=== PATIENT | female | born 1955 | race Caucasian/White ===

== ENCOUNTER 2019-07-16 20:19 | Emergency (ER) | payer OTHER, SELFPAY ==
[2019-07-16 20:20] VITALS: BP 167/84; PULSE 83; RESP 18; TEMP 35.8; O2SAT 100; BMI 32.3
--- NOTE | 2019-07-16 20:45 | ED.DCSUM_ITS ---
History of Present Illness Chief Complaint: Vag Bleeding Informant: Patient Onset: Today Current Severity: Moderate Maximum Severity: Moderate Narrative: Patient presents with onset of lower abdominal cramping and vaginal bleeding this morning. She reports going through 12 pads in the past 8 hours. She is having a lot of cramping and pain into her back. She states that she went through menopause at the age of 59. She has not seen an [employer] in several decades. She is never been . Prior surgical history is significant for appendectomy and tonsillectomy. After arriving to the emergency room she did develop nausea and vomiting. - Past Medical History (1) History of appendectomy Status: Chronic (2) History of tonsillectomy Status: Chronic Past Medical History - Allergies and Home Meds Allergies/Adverse Reactions: Allergies codeine Adverse Reaction (Verified 07/16/19 20:20) Rash Primary Care Physician: Darleen Danielson MD [STAFF PHYSICIAN] - Prior records reviewed: Yes Lives: Spouse/ Significant Other Smoking Status: Never smoker Review of Systems General: Denies: Chills, Fever Eyes: Denies: Visual changes - bilaterally ENT: Denies: Bilateral ear pain Cardiovascular: Denies: Chest pain Respiratory: Denies: Dyspnea, Cough Gastrointestinal: Reports: Abdominal pain, Nausea, Vomiting Musculoskeletal: Reports: Back pain Neurological: Denies: Headache, Weakness Allergy: Denies: Uticaria Physical Exam Vital Signs/Narrative: Vital Signs Temp Pulse Resp BP Pulse Ox 07/16/19 20:20 96.5 F L 83 18 167/84 H 100 Inital Vital Signs reviewed: Yes General: Well nourished, Well developed Head: Normocephalic ENT: Moist mucous membranes Neck: Supple Cardiovascular: Regular rate, Regular rhythm Respiratory: No distress, CTA bilaterally Abdomen: Soft, Tender - Lower abdominal tenderness to palpation. Extremities: Nontender Skin: Normal color Neurological: Alert, Oriented x3 Psychological: Normal affect Diagnostic/Tx/Re-eval Impressions Abdomen/Pelvis CT 07/16/19 21:19 IMPRESSION: 1. The endometrial cavity is distended with heterogeneous soft tissue that demonstrates minimal peripheral enhancement particularly in the fundal region. Primary endometrial or uterine or endocervical malignancy with chronic hemorrhagic/debris relating material suspected. 2. Diffuse colonic diverticulosis Electronically Signed: Chris Moran MD at 22:15 EST , Service support , Transvaginal US 07/16/19 22:03 IMPRESSION: 1. The endometrial cavity and endocervical canal is still with heterogeneous mostly avascular debris compatible with reported hemorrhage. Prominent vascular flow is seen in the cervical canal where there is thickening of the mucosa. The endometrial lining is poorly or incompletely visualized on this study. While the findings can be entirely related to hemorrhage there is suspicion for gynecologic malignancy given the thickening of mucosa and increased vascularity. 2. Direct visualization and tissue sampling may be required for evaluation of malignancy versus a nonmalignant process Electronically Signed: Chris Moran MD at 23:15 EST , Service support , 07/16/19 21:19 Abdomen/Pelvis W IV Cont ONLY [CT] Stat 07/16/19 22:03 Transvaginal Non- [US] Stat Laboratory Results 07/16/19 07/16/19 07/16/19 20:40 20:40 20:40 WBC 13.1 H RBC 3.87 L Hgb 11.5 L Hct 34.6 L MCV 89.4 MCH 29.7 MCHC 33.2 RDW Std Deviation 41.4 RDW Coeff of Tahir 12.6 Plt Count 301 MPV 11.5 Immature Gran % (Auto) 1.700 H Neut % (Auto) 48.3 Lymph % (Auto) 41.5 H [place] % (Auto) 5.9 Eos % (Auto) 1.8 Baso % (Auto) 0.8 Absolute Neuts (auto) 6.4 Absolute Lymphs (auto) 5.45 H Nucleated RBC % 0 Differential Comment SEE COMMENT Platelet Estimate ADEQUATE Plt Morphology Comment LARGE RBC Morphology NORM C+C PT 14.0 INR 1.1 APTT 25.5 Sodium 141 Potassium 3.3 L Chloride 108 H Carbon Dioxide 25.0 Anion Gap 8 BUN 18 Creatinine 1.37 H Estim Creat Clear Calc 39.35 Est GFR (MDRD) Af Amer 50 L Est GFR (MDRD) Non-Af 41 L BUN/Creatinine Ratio 13.1 Glucose 155 H Calcium 8.2 L - Medical Decision Making Patient was given morphine and Zofran for nausea and vomiting when I first saw her. Patient's bleeding has significantly decreased in intensity. I spoke with patient and at bedside about her test results. I also spoke with Dr. Danielson, on-call for [facility]. She states the patient needs to be seen by [employer]-onc. She will have her office call Dr. Ogden in [place] tomorrow morning to try to help arrange close follow-up. Patient should expect to hear from them by 10 AM. This was discussed with patient and at bedside. She states that she will follow-up to at least have the biopsies, but she is not sure that she would ever want surgery or chemotherapy. I advised her that we would least be able to give her definitive diagnosis so she could make an educated decision about her wishes. If bleeding worsens or pain increases patient is to return to the emergency room. ED Disposition - Plan for ED Patient: Disposition: Home or Assisted Living Diagnosis: Vaginal bleeding Instructions: Dysfunctional Uterine Bleeding Prescriptions: Hydrocodone Bitart/Apap 5-325 [[place] 5MG-325MG] 1 tablet PO Q6H PRN PRN 3 Days #10 tablet PRN Reason: Pain Referrals: Darleen Danielson MD [STAFF PHYSICIAN] - Additional Instructions: You should hear from Dr Danielson's office by 10 AM tomorrow. If you do not hear from them by 10, please call for an update. Return to ED for worsening symptoms or concerns.
[2019-07-16] MEDS: 0.9% Normal Saline 1,000 ML 1000 ML IV (20:47)
[2019-07-16] MEDS: Morphine 4 MG/ML Syringe IV (20:48)
[2019-07-16] MEDS: Ondansetron 4 MG/2 ML Vial IV (20:48)
[2019-07-16] MEDS: 0.9% Normal Saline 1,000 ML 150 ML IV (20:50)
[2019-07-16 20:52] LABS: Absolute Lymphocyte Count 5.45 X10^3/uL (0.83-4.51); Absolute Neutrophil Count 6.4 X10^3/uL (2.0-7.7); Basophil% 0.8 % (0-1); Eosinophil# 0.23 X10^3/uL; Eosinophils% 1.8 % (0-5); Hematocrit 34.6 % (37-47); Hemoglobin 11.5 g/dL (12.0-15.0); Lymphocyte # 5.45 X10^3/ul (4.0); Lymphocyte % 41.5 % (19-41); Mean Corp Hgb Conc 33.2 g/dL (32-36); Mean Corpuscular Hgb 29.7 pg (27.0-32.0); Mean Corpuscular Volume 89.4 fL (81-99); Mean Platelet Vol. 11.5 fl (6.2-12.0); Monocyte# 0.78 X10^3/uL; Monocyte% 5.9 % (0-10); NRBC Flagged by Analyzer 0 % (0-5); Neutrophil # 6.35 X10^3/uL (2.7-7.7); Neutrophil % 48.3 % (47-70); POSITIVE DIFFERENTIAL YES; Platelet Count 301 K/mm3 (150-450); RBC Distribution Width CV 12.6 % (11.6-14.6); RBC Distribution Width SD 41.4 fl (35.1-43.9); Red Blood Count 3.87 M/mm3 (4.2-5.4); White Blood Count 13.1 K/mm3 (4.4-11.0)
[2019-07-16 20:55] LABS: Differential Indicated SCAN CRITERIA MET
[2019-07-16 21:06] LABS: Anion Gap 8 (5-15); BUN 18 mg/dL (7-18); BUN/Creat Ratio 13.1 RATIO (10-20); Calcium,Total 8.2 mg/dL (8.5-10.1); Chloride 108 mmol/L (98-107); Creatinine, Serum 1.37 mg/dL (0.55-1.02); EST Glomerular Filtration Rate 41 mL/min (>60); Est Glom Filt Rate - Afr Amer 50 mL/min (>60); Estimated Creatinine Clearance 39.35 ml/min; Glucose 155 mg/dL (74-106); Potassium 3.3 mmol/L (3.5-5.1); Sodium Level 141 mmol/L (136-145)
[2019-07-16 21:10] LABS: International Normalized Ratio 1.1
[2019-07-16 21:11] LABS: Partial Thromboplast Time 25.5 Seconds (24.1-36.2)
--- NOTE | 2019-07-16 21:19 | CT_ITS ---
STUDY: CT ABDOMEN AND PELVIS WITHOUT CONTRAST REASON FOR EXAM: Female, 64 years old. ABDOMEN PAIN AND SEVERE VAGINAL BLEEDING SINCE THIS AM. Pt. is 5yr post-menopause RADIATION DOSAGE (If Supplied By Facility): CTDIvol = ( 17.51 ) mGy, DLP = ( 1134.92 ) mGycm TECHNIQUE: Transaxial images were obtained from the dome of the diaphragm to the symphysis pubis without oral contrast, and without intravenous contrast. Sagittal and coronal images were reconstructed. Individualized dose optimization techniques were used for this CT. COMPARISON: CT of abdomen and pelvis dated September 16, 2009 FINDINGS: The endometrial cavity is distended with heterogeneous soft tissue that demonstrates minimal peripheral enhancement particularly in the fundal region. Primary endometrial or uterine or endocervical malignancy with chronic hemorrhagic/debris relating material suspected. The visualized lung bases are unremarkable. There is decreased attenuation of the liver consistent with steatosis. No intrahepatic biliary duct dilatation or liver mass. Normal gallbladder and extrahepatic biliary system. Normal spleen. Normal pancreas. Normal bilateral adrenal glands. Normal right kidney. Normal left kidney. No hydronephrosis or renal masses. No large stones. Normal visualized stomach. Normal small intestine. There are multiple colonic diverticula consistent with diverticulosis. No bowel dilatation or obstruction. No free air or free fluid. There is non-visualization of the appendix. There is diffuse atherosclerotic calcification of the abdominal aorta, without a demonstrated aneurysm. Normal inferior vena cava. Small 1 cm retroperitoneal lymph node noted between the IVC and aorta in the infrarenal region mild right subcentimeter pelvic sidewall lymphadenopathy is present in the bilateral adnexal regions are grossly unremarkable.. Normal urinary bladder. Normal abdominal wall. There are diffuse degenerative changes of the visualized lumbar spine. CT/Abdomen/Pelvis W IV Cont ONLY IMPRESSION: 1. The endometrial cavity is distended with heterogeneous soft tissue that demonstrates minimal peripheral enhancement particularly in the fundal region. Primary endometrial or uterine or endocervical malignancy with chronic hemorrhagic/debris relating material suspected. 2. Diffuse colonic diverticulosis Electronically Signed: Chris Moran MD at 22:15 EST , Service support ,
[2019-07-16 21:34] LABS: Platelet Estimate ADEQUATE (ADEQ); Platelet Morphology LARGE; Red Cell Morphology NORM C+C NORMAL (NORM C&C)
--- NOTE | 2019-07-16 22:03 | US_ITS ---
PROCEDURE: ULTRASOUND OF THE FEMALE PELVIS - COMPLETE REASON FOR EXAM: Female, 64 years old. HEAVY BLEEDING WIH CLOTS JUST TODAY TECHNIQUE: Transabdominal and Transvaginal TECHNICAL QUALITY: Adequate. COMPARISON: CT of the abdomen and pelvis dated July 16, 2019 FINDINGS: The endometrial cavity and endocervical canal is still with heterogeneous mostly avascular debris compatible with reported hemorrhage. Prominent vascular flow is seen in the cervical canal where there is thickening of the mucosa. The endometrial lining is poorly or incompletely visualized on this study. While the findings can be entirely related to hemorrhage there is suspicion for gynecologic malignancy given the thickening of mucosa and increased vascularity. The uterus is anteverted and is in a midline position. The uterus measures 11.13 x 4.43 x 5.52 cm. There is no demonstrated myometrial mass. The right ovary is non-visualized. There is no visualized right adnexal mass or complex lesion. The left ovary is non-visualized. There is no visualized left adnexal mass or complex lesion. There is no fluid in the cul-de-sac. US/Transvaginal Non- IMPRESSION: 1. The endometrial cavity and endocervical canal is still with heterogeneous mostly avascular debris compatible with reported hemorrhage. Prominent vascular flow is seen in the cervical canal where there is thickening of the mucosa. The endometrial lining is poorly or incompletely visualized on this study. While the findings can be entirely related to hemorrhage there is suspicion for gynecologic malignancy given the thickening of mucosa and increased vascularity. 2. Direct visualization and tissue sampling may be required for evaluation of malignancy versus a nonmalignant process Electronically Signed: Chris Moran MD at 23:15 EST , Service support ,
[2019-07-17 00:10] VITALS: BP 135/86; BP 137/86; PULSE 86; PULSE 88; RESP 17; O2SAT 97
== END 2019-07-17 00:11 | disposition home or self-care (01) ==
PROVIDERS: Emergency Provider Emergency Medicine
DX: N95.0 Postmenopausal bleeding (principal)
CPT/HCPCS: 74177; 76830; 80048; 85025; 85610; 85730; 96361; 96374; 96375; 99285; J7030; Q9967; A4216; J2405

== ENCOUNTER → 2020-03-11 | Outpatient (CLI) | payer OTHER, SELFPAY ==
[2020-03-05 15:13] VITALS: BMI 33.9
--- NOTE | 2020-03-11 07:49 | CT_ITS ---
STUDY: CT ABDOMEN AND PELVIS WITH CONTRAST REASON FOR EXAM: Female, 64 years old. ENDOMETRIAL CANCER WITH TOTAL HYSTERECTOMY AND APPENDECTOMY. NO OTHER TREATMENT RADIATION DOSAGE (If Supplied By Facility): CTDIvol = ( 13.22 ) mGy, DLP = ( 875.28 ) mGycm TECHNIQUE: Transaxial images were obtained from the dome of the diaphragm to the symphysis pubis with oral contrast. Oral and amp; IV READII-CAT and amp; 100ML ISOVUE 370 was administered. Sagittal and coronal images were reconstructed. Individualized dose optimization techniques were used for this CT. COMPARISON: Comparison is made with prior examination dated 07/16/2019. FINDINGS: The visualized lung bases are unremarkable. The visualized portions of the heart are within normal limits. There is decreased attenuation of the liver consistent with steatosis. Normal gallbladder and extrahepatic biliary system. Normal spleen. Normal pancreas. Normal bilateral adrenal glands. Normal right kidney. Normal left kidney. Normal visualized stomach. Normal small intestine. There are multiple colonic diverticula consistent with diverticulosis. The patient is status post appendectomy. There is scattered atherosclerotic calcification of the abdominal aorta, without a demonstrated aneurysm. Normal inferior vena cava. There is borderline retroperitoneal lymphadenopathy with enlarged nodes no greater than 10mm in the short axis diameter. Normal urinary bladder. There is absence of the uterus consistent with a prior hysterectomy. Normal abdominal wall. There are degenerative changes of the visualized lumbar spine. CT/Abdomen/Pelvis WITH Contrast IMPRESSION: Fatty infiltration of the liver. Sigmoid diverticulosis. Status post hysterectomy and appendectomy. Electronically Signed: Marino Agudelo, at 9:46 EDT , Service support ,
--- NOTE | 2020-03-11 07:50 | RAD_ITS ---
STUDY: X-RAY CHEST REASON FOR EXAM: Female, 64 years old. ENDOMETRIAL CANCER. CHEST PAIN AROUND DIAPHRAGM. PAIN IS CONSTANT. NO PREVIOUS SURGERY TECHNIQUE: PA and lateral views of the chest. COMPARISON: None. FINDINGS: Hyperinflation. The lungs are clear. There is no demonstrated pleural abnormality. Normal size heart. Normal mediastinum and fahad. Normal visualized pulmonary arteries. There is atherosclerotic tortuosity of the aortic arch and descending thoracic aorta. There are diffuse degenerative changes of the visualized thoracic spine. Normal visualized ribs, clavicles, and shoulders. There is no demonstrated abnormality of the visualized soft tissue structures of the upper abdomen. RAD/Chest PA and Lateral IMPRESSION: Hyperinflation. The lungs are clear. Electronically Signed: Marino Agudelo, at 9:59 EDT , Service support ,
== END | disposition home or self-care (01) ==
LOC: CT 07:49
PROVIDERS: Referring Provider Internal Medicine Medical Oncology; Visit Provider Internal Medicine Medical Oncology
DX: C54.1 Malignant neoplasm of endometrium (principal)
CPT/HCPCS: 71046; 74177; Q9967

== ENCOUNTER → 2020-07-08 | Outpatient (CLI) | payer OTHER, SELFPAY ==
[2020-07-02 08:50] VITALS: BMI 32.3
--- NOTE | 2020-07-08 11:30 | MISC_PTH ---
PATIENT: CHRIS YORK LOC: [facility] U#:[id number] AGE/SX: 65/F ROOM: RE07/08/[address]: Dr. Abdias Rhodes MD : [id number] BED: DIS: 07/08/2020 SPEC #: [id number] RECD: 07/08/20 15:35 STATUS: YOLANDA SCARLETT #: [id number] HILARIA: 07/08/20 11:[address]: Abdias Rhodes DEPT: SURGICAL PATHOLOGY RECD BY: Mariama Acosta ENTERED: 07/09/20 13:27 SP TYPE: MISC ALEX DR: No Primary Care Phys Tissues: Oral cavity, NOS Procedures: Special Stain Group II Surgery Specimen Level IV HEADER OPERATION: PRE-OP DIAGNOSIS: Oral cavity vesicle TISSUE SUBMITTED: Oral cavity vesicle MICROSCOPIC DIAGNOSIS Oral cavity vesicle (smears): Benign squamous cells. No evidence of viral cytopathic change. See comment. Oral cavity vesicle, biopsy: Benign squamous mucosa. Submucosa with minimal chronic inflammation. No evidence of viral cytopathic change. AM:raul 07/10/2020 COMMENT Two Diff-Quik and two pap stains are prepared from the vesicle for microscopic examination and viewed with appropriate controls and are negative for viral cytopathic change. MICROSCOPIC DESCRIPTION Slides are reviewed. GROSS DESCRIPTION Received is one container labeled with the patient's name and not further designated. The specimen consists of a single irregular fragment of light morgan soft tissue measuring 0.2 x 0.1 x <0.1 cm. Four touch imprints (2 Diff-Quik and 2 pap smears) are prepared. The specimen is totally submitted in one cassette for permanent sections). / AM:raul 07/09/20 TC:5 CPT: 76037, 66406
== END | disposition home or self-care (01) ==
LOC: LABSPEC 14:59
PROVIDERS: Referring Provider Otolaryngology; Visit Provider Otolaryngology
DX: R23.8 Other skin changes (principal)
CPT/HCPCS: 88305; 88313

== ENCOUNTER → 2020-07-15 15:25 | Outpatient (CLI) | payer OTHER, SELFPAY ==
[2020-07-02 08:50] VITALS: BMI 32.3
--- NOTE | 2020-07-15 15:32 | MRI_ITS ---
STUDY: MRI LUMBAR SPINE WITHOUT CONTRAST REASON FOR EXAM: Female, 65 years old. low back pain into R leg, h/o urterine CA TECHNIQUE: Standardized fat and water weighted pulse sequences were obtained in the sagittal and axial planes. COMPARISON: X-ray to FINDINGS: T12-L1: Normal endplates. Normal disc height, hydration and morphology. Normal bilateral facet joints. Normal central canal and bilateral lateral recesses. Normal bilateral intervertebral neural foramina. Normal lumbar lordosis. There is no substantial scoliosis. Normal conus medullaris that terminates at the T12/L1. Marrow replacement of the majority of the L3 vertebral body worrisome for metastatic disease. No pathologic compression fracture. L1-2: Normal endplates. Normal disc height, hydration and morphology. Normal bilateral facet joints. Normal central canal and bilateral lateral recesses. Normal bilateral intervertebral neural foramina. L2-3: Mild bilateral facet hypertrophy and ligament flavum hypertrophy. Mild bilobed disc protrusion produces mild spinal stenosis and mild bilateral neural foraminal stenosis. L3-4: Moderate bilateral facet hypertrophy and ligament flavum hypertrophy. 2 mm of anterolisthesis of L3 on L4 with a mild broad disc protrusion produces mild spinal stenosis and mild bilateral neural foraminal stenosis. L4-5: Mild bilateral facet hypertrophy and ligament flavum hypertrophy. Mild broad disc protrusion produces mild spinal stenosis and mild bilateral neural foraminal stenosis. L5-S1: Sacralization of L5 with a rudimentary disc space with no spinal stenosis or neural foraminal stenosis. Normal visualized sacral ala. Mild friction related edema in the posterior subcutaneous kidneys fat. MRI/Spine Lumbar (Routine) IMPRESSION: 1. Suspect metastatic disease to L3 without a pathologic compression fracture. Correlation with bone scan would be useful. 2. Mild degenerative disc disease as described above. Electronically Signed: Scott Mendosa MD at 16:58 EST Tel , Service support ,
== END ==
PROVIDERS: Referring Provider Orthopaedic Surgery; Visit Provider Orthopaedic Surgery
DX: M54.5 Low back pain (principal)
CPT/HCPCS: 72148

== ENCOUNTER → 2020-07-28 07:41 | Outpatient (CLI) | payer OTHER, SELFPAY ==
[2020-07-21 13:06] VITALS: BMI 32.6
--- NOTE | 2020-07-28 07:44 | NM_ITS ---
CLINICAL: 65-year-old female with reported history of endometrial carcinoma with current complaint of low back discomfort. WHOLE BODY 99m Tc MDP RADIONUCLIDE BONE SCINTIGRAPHY COMPARISON: MRI of the lumbar spine report 07/15/2020 FINDINGS: Following the intravenous administration of 27.0 mCi of 99m Tc MDP, whole body bone images reveal: 1. Increased radiopharmaceutical concentration is identified in the acromioclavicular and sternoclavicular compartments of both shoulders, the left wrist, mid cervical spine posteriorly on the left and right, third-fifth lumbar vertebra, the patellofemoral compartment of the right knee. 2. The remaining skeletal structures are scintigraphically unremarkable with normal-appearing renal images and urinary bladder activity identified. Facilitated uptake appears evident in the left mandible most consistent with periodontal disease-periostitis. There is an increase in radiotracer distribution observed in the right proximal tibia (lateral tibial plateau) likely representing periostitis. NM/Bone Scan Whole Body IMPRESSION: 1. The increase in radiopharmaceutical concentration identified in the bilateral shoulders, left wrist, cervical and lumbar spine, the right knee is most consistent with degenerative arthritis. 2. There is no definitive typical scintigraphic evidence of diffuse axial skeletal metastatic disease on the current examination. Electronically Signed: Scott Sharma DO at 21:53 EST Tel , Service support ,
== END ==
PROVIDERS: Referring Provider Internal Medicine Medical Oncology; Visit Provider Internal Medicine Medical Oncology
DX: C54.1 Malignant neoplasm of endometrium (principal); R93.7 Abnormal findings on diagnostic imaging of other parts of musculoskeletal system
CPT/HCPCS: 78306

== ENCOUNTER → 2020-07-30 13:39 | Outpatient (CLI) | payer OTHER, SELFPAY ==
[2020-07-02 08:50] VITALS: BMI 32.3
[2020-07-21 13:06] VITALS: BMI 32.6
--- NOTE | 2020-07-30 13:43 | CT_ITS ---
STUDY: CT ABDOMEN AND PELVIS WITH CONTRAST REASON FOR EXAM: Female, 65 years old. HX OF ENDOMETRIAL CANCER RADIATION DOSAGE (If Supplied By Facility): CTDIvol = ( 18.5 ) mGy, DLP = ( 1193.46 ) mGycm TECHNIQUE: Transaxial images were obtained from the dome of the diaphragm to the symphysis pubis with oral contrast. Oral and amp; IV Readi-CAT and amp; 100mL Isovue-300 was administered. Sagittal and coronal images were reconstructed. Individualized dose optimization techniques were used for this CT. COMPARISON: Comparison is made with prior examination dated 03/11/2020. FINDINGS: The visualized lung bases are unremarkable. The visualized portions of the heart are within normal limits. There is decreased attenuation of the liver consistent with steatosis. Normal gallbladder and extrahepatic biliary system. Normal spleen. Normal pancreas. Normal bilateral adrenal glands. Normal right kidney. Normal left kidney. Normal visualized stomach. Normal small intestine. There are multiple colonic diverticula consistent with diverticulosis. There is non-visualization of the appendix. There is scattered atherosclerotic calcification of the abdominal aorta, without a demonstrated aneurysm. Normal inferior vena cava. There now is evidence of enlarged lymph nodes in the right retroperitoneum deep to the right psoas muscle. This extends from the level of the distal abdominal aorta caudally into the right hemipelvis adjacent to the right external iliac artery. This was not seen on prior study. This measures 4 cm x 2.1 cm x 6.5 cm. Normal urinary bladder. Normal abdominal wall. There are diffuse degenerative changes of the visualized lumbar spine. CT/Abdomen/Pelvis WITH Contrast IMPRESSION: Interval development of right retrocrural peritoneal lymphadenopathy extending into the right side of the hemipelvis. Fatty infiltration of the liver. Electronically Signed: Marino Augdelo MD at 15:21 EST , Service support ,
== END ==
PROVIDERS: Referring Provider Internal Medicine Medical Oncology; Visit Provider Internal Medicine Medical Oncology
DX: Z85.42 Personal history of malignant neoplasm of other parts of uterus (principal)
CPT/HCPCS: 74177; Q9967

== ENCOUNTER 2020-08-27 20:11 | Emergency (ER) | payer OTHER, SELFPAY ==
[2020-08-21 13:39] VITALS: BMI 30.7
[2020-08-27 20:11] VITALS: BP 139/91; PULSE 107; RESP 23; TEMP 36.6; O2SAT 100; BMI 30.7
--- NOTE | 2020-08-27 20:35 | ED.DCSUM_ITS ---
History of Present Illness Chief Complaint: Back Informant: Patient Onset: - - Acute on chronic Current Severity: Severe Maximum Severity: Severe Narrative: Patient presents secondary to worsening back pain. Patient has a history of endometrial cancer that was treated a year ago. Patient recently had increasing back pain and thought it was secondary to degenerative disc disease. She followed up with a specialist to get an MRI which revealed what appears to be a metastatic or new cancerous lesion to L3. Patient is currently in pain management with Dr. Sotelo. She is scheduled to have a biopsy of the L3 lesion next week. Patient is currently on Decadron, fentanyl patch, and oxycodone every 6 to 8 hours. Patient presents tonight secondary to severe pain. Patient is not interested in chemotherapy or radiation. Once she gets a definitive diagnosis she plans to enter a program referred to as a [facility] where she can be treated for quality of life but not duration of life. At this time patient is asking for pain control to help with her quality of life. She does have an appointment with Dr. Sotelo tomorrow. - Past Medical History (1) Bone destruction Status: Chronic (2) History of salpingo-oophorectomy Status: Chronic (3) History of total abdominal hysterectomy Status: Chronic (4) History of endometrial cancer Status: Chronic Comment: Stage 111C1 Grade 3 Past Medical History - Allergies and Home Meds Allergies/Adverse Reactions: Allergies ibuprofen Adverse Reaction (Intermediate, Verified 08/27/20 20:11) Abd cramps/diarrhea codeine Adverse Reaction (Verified 08/27/20 20:11) Rash Primary Care Physician: Rich Sotelo MD [STAFF PHYSICIAN] - Keep Lesli appointment Prior records reviewed: Yes Lives: Spouse/ Significant Other Smoking Status: Never smoker Review of Systems General: Denies: Chills, Fever Eyes: Denies: Visual changes - bilaterally ENT: Denies: Bilateral ear pain Cardiovascular: Denies: Chest pain Respiratory: Denies: Dyspnea, Cough Gastrointestinal: Denies: Abdominal pain, Vomiting, Diarrhea Genitourinary: Denies: Dysuria Musculoskeletal: Reports: Back pain, Extremity Pain Neurological: Reports: Parasthesia Hematologic: Denies: Easy bruising, Easy bleeding Allergy: Denies: Uticaria Physical Exam Vital Signs/Narrative: Vital Signs Temp Pulse Resp BP Pulse Ox 08/27/20 20:11 97.8 F 107 H 23 H 139/91 H 100 Inital Vital Signs reviewed: Yes General: Well nourished, Well developed Head: Normocephalic ENT: Moist mucous membranes Neck: Supple Cardiovascular: Regular rate, Regular rhythm Respiratory: No distress, CTA bilaterally Abdomen: Soft, Nontender Back: Spinal tenderness Extremities: - - Tenderness of the right lower extremity. Equal distal pulses. No focal deficits noted on testing. Skin: Normal color Neurological: Alert, Oriented x3 Psychological: - - Anxious Diagnostic/Tx/Re-eval - Medical Decision Making Patient was given 2 mg of IM Dilaudid followed by 5 mg of p.o. oxycodone. Repeat examination she states her pain is down to a 7 which she is comfortable with. She is able to get up and ambulate to the restroom. She will follow up with Dr. Sotelo tomorrow as scheduled. ED Disposition - Plan for ED Patient: Disposition: Home or Assisted Living Diagnosis: Back pain Instructions: ED Back Pain (Acute or Chronic) Referrals: Rich Sotelo MD [STAFF PHYSICIAN] - Keep Lesli appointment
[2020-08-27] MEDS: HYDROmorphone 1 MG/ML Syringe 2 MG IM (20:43)
[2020-08-27] MEDS: oxyCODONE 5 MG Tablet PO (21:38)
[2020-08-27 22:30] VITALS: PULSE 90; RESP 15; O2SAT 98
== END 2020-08-27 22:31 | disposition home or self-care (01) ==
PROVIDERS: Emergency Provider Emergency Medicine
DX: M54.9 Dorsalgia, unspecified (principal); Z85.42 Personal history of malignant neoplasm of other parts of uterus
CPT/HCPCS: 96372; 99282

== ENCOUNTER 2020-08-28 11:07 | Observation (INO) | payer OTHER, SELFPAY ==
[2020-08-27 20:11] VITALS: BMI 30.7
[2020-08-28] VITALS (20 sets, daily range): BP systolic 129–175; BP diastolic 83–131; PULSE 80–126; RESP 16–19; TEMP 36.4–36.9; O2SAT 98–100; BMI 31.4; BMI 29.8
--- NOTE | 2020-08-28 11:31 | CT_ITS ---
HISTORY: Spine met, intractable back pain ADDITIONAL HISTORY: None provided COMPARISON: CT abdomen and pelvis 07/30/2020 and PET/CT 08/19/2020 TECHNIQUE: Axial, coronal and sagittal noncontrast CT images of the lumbar spine. 2D reconstructions were reviewed to aid in evaluation of the lumbar spine. A radiation dose optimization technique was utilized for this scan. Number of images including paperwork: [id number] FINDINGS: BONES: Mixed lytic and sclerotic lesion within the L3 vertebral body with associated pathologic fracture and associated soft tissue mass again seen. There is moderate loss of height along the right side of the vertebral body and mild loss of height along the left side of the vertebral body, with mild interval increase in the former compared to 07/30/2020. VERTEBRAL ALIGNMENT: No traumatic subluxation. DISCS AND JOINTS: Mild disc bulging is present at L2-3. Facet arthropathy, most pronounced L3-S1. SPINAL CANAL AND FORAMINA: None canal stenosis is present at L2-3 and at L3 secondary to disc bulging, facet and ligament hypertrophy and approximate 3 mm of retropulsion of L3. Possible soft tissue mass extending into the foramen on the right side of L3 with question of small epidural soft tissue mass. SOFT TISSUES: No paraspinous soft tissue swelling. VISUALIZED ABDOMEN/PELVIS: Small amount of pelvic free fluid. Colonic diverticulosis. CT/Spine Lumbar without Contrast IMPRESSION: Pathologic fracture of L3 with slight increase in loss of height compared to previous. There is an associated soft tissue mass which appears to be extending into the foramen and there may be a small associated epidural soft tissue mass. MRI lumbar spine without and with contrast could better evaluate. Individualized dose optimization techniques were used for this CT. at 1229 Reported and signed by: Kim Farrell MD Electronically Signed: Kim Farrell MD at 12:29 EDT Tel , Service support ,
--- NOTE | 2020-08-28 11:32 | ED.DCSUM_ITS ---
History of Present Illness Chief Complaint: Lower Extremity Injury Narrative: This patient is a 65-year-old female who presents with severe back pain. She was recently diagnosed with an L3 lesion which is thought to be metastatic. She does see oncology and pain management. She has a fentanyl patch as well as 10 mg oral oxycodone for breakthrough. Her baseline pain is about 6 out of 10. Up until a couple of weeks ago she was relatively well managed. She had an epidural injection. Her pain is been slightly worse since that time but particularly since yesterday when it has been severe at 9 out of 10. She reports that her current home medication regiment is insufficient. She was given intramuscular Dilaudid yesterday and felt much better and was able to ambulate she was discharged. She returns now with recurrent severe intractable pain. She does report intermittent weakness of the right leg as well as paresthesias of the right leg these are not a new symptom. No urinary retention no fecal incontinence no saddle anesthesia no abdominal pain no fever. Past Medical History - Allergies and Home Meds Allergies/Adverse Reactions: Allergies ibuprofen Adverse Reaction (Intermediate, Verified 08/28/20 11:13) Abd cramps/diarrhea codeine Adverse Reaction (Verified 08/28/20 11:13) Rash Primary Care Physician: Rich Sotelo MD [Primary Care Provider] - Past Medical History: - - L3 vertebral lesion. Smoking Status: Never smoker Review of Systems All systems negative except as indicated General: Denies: Fever Eyes: Denies: Visual changes - bilaterally ENT: Denies: Bilateral ear pain Cardiovascular: Denies: Chest pain Respiratory: Denies: Dyspnea Gastrointestinal: Denies: Abdominal pain Musculoskeletal: Reports: Back pain, Extremity Pain Skin: Denies: Rash Neurological: Denies: Headache Hematologic: Denies: Easy bruising Allergy: Denies: Uticaria Physical Exam Vital Signs/Narrative: Vital Signs Temp Pulse Resp BP Pulse Ox 08/28/20 11:08 97.6 F L 96 19 H 152/131 H 100 Inital Vital Signs reviewed: Yes General: Well nourished, Well developed, - - Patient is tearful and appears to be in pain Head: Normocephalic Eyes: EOMI ENT: Moist mucous membranes Neck: Supple Cardiovascular: Regular rate, Regular rhythm Respiratory: No distress, CTA bilaterally Abdomen: Soft, Nontender Skin: Normal color Neurological: Alert, - - 5 out of 5 bilateral dorsiflexion and plantarflexion patient reports decreased sensation to touch of the right leg but is able to tell I am touching. Psychological: Normal affect Diagnostic/Tx/Re-eval Impressions Lumbar Spine CT 08/28/20 11:31 IMPRESSION: Pathologic fracture of L3 with slight increase in loss of height compared to previous. There is an associated soft tissue mass which appears to be extending into the foramen and there may be a small associated epidural soft tissue mass. MRI lumbar spine without and with contrast could better evaluate. Individualized dose optimization techniques were used for this CT. at 1229 Reported and signed by: Kim Farrell MD Electronically Signed: Kim Farrell MD at 12:29 EDT Tel , Service support , 08/28/20 11:31 Spine Lumbar without Contrast [CT] Stat Laboratory Results 08/28/20 08/28/20 11:57 11:57 WBC 11.1 H RBC 5.93 H Hgb 17.1 H Hct 52.5 H MCV 88.5 MCH 28.8 MCHC 32.6 RDW Std Deviation 43.7 RDW Coeff of Tahir 13.5 Plt Count 233 MPV 11.4 Immature Gran % (Auto) 2.200 H Neut % (Auto) 78.9 H Lymph % (Auto) 12.7 L [place] % (Auto) 5.6 Eos % (Auto) 0.1 Baso % (Auto) 0.5 Absolute Neuts (auto) 8.8 H Absolute Lymphs (auto) 1.41 Nucleated RBC % 0 Sodium 139 Potassium 3.6 Chloride 103 Carbon Dioxide 30.0 Anion Gap 6 BUN 16 Creatinine 0.99 Estim Creat Clear Calc 53.74 Est GFR (MDRD) Af Amer 72 Est GFR (MDRD) Non-Af 60 BUN/Creatinine Ratio 16.1 Glucose 122 H Calcium 8.8 - Medical Decision Making She has no urinary retention or fecal incontinence. No saddle anesthesia. She does have some intermittent weakness of the right leg but objectively her strength appears to be normal. She does report decreased sensation but this is not a new symptom. At this time I do not believe she has evidence of acute cord compression however she is only seeking palliative care at this point regardless,She is not interested in surgical intervention, radiation, chemotherapy. IV was established patient was given IV Dilaudid and Zofran. Given her acute worsening of symptoms I did send for CT of the lumbar spine to evaluate for possible pathologic fracture. Labs unremarkable. Patient feels much better on reevaluation. CT imaging does show a pathologic fracture at L3. I spoke to neurosurgery, Dr. Ayers. Patient will be admitted to the hospitalist service for symptomatic control with plan for follow-up MRI. I spoke to Dr. Nguyen who agrees to admit. ED Disposition - Plan for ED Patient: Disposition: Acute Care Hospital [facility] Diagnosis: Pathologic fracture Referrals: Rich Sotelo MD [Primary Care Provider] -
[2020-08-28] MEDS: Ondansetron 4 MG/2 ML Vial IV (11:56)
[2020-08-28] MEDS: HYDROmorphone 1 MG/ML Syringe IV ×2 (11:56→14:35)
[2020-08-28 12:06] LABS: Absolute Lymphocyte Count 1.41 X10^3/uL (0.83-4.51); Absolute Neutrophil Count 8.8 X10^3/uL (2.0-7.7); Basophil# 0.06 X10^3/uL; Basophil% 0.5 % (0-1); Eosinophil# 0.01 X10^3/uL; Eosinophils% 0.1 % (0-5); Hematocrit 52.5 % (37-47); Hemoglobin 17.1 g/dL (12.0-15.0); Lymphocyte # 1.41 X10^3/ul (4.0); Lymphocyte % 12.7 % (19-41); Mean Corp Hgb Conc 32.6 g/dL (32-36); Mean Corpuscular Hgb 28.8 pg (27.0-32.0); Mean Corpuscular Volume 88.5 fL (81-99); Mean Platelet Vol. 11.4 fl (6.2-12.0); Monocyte# 0.62 X10^3/uL; Monocyte% 5.6 % (0-10); NRBC Flagged by Analyzer 0 % (0-5); Neutrophil # 8.77 X10^3/uL (2.7-7.7); Neutrophil % 78.9 % (47-70); Platelet Count 233 K/mm3 (150-450); RBC Distribution Width CV 13.5 % (11.6-14.6); RBC Distribution Width SD 43.7 fl (35.1-43.9); Red Blood Count 5.93 M/mm3 (4.2-5.4); White Blood Count 11.1 K/mm3 (4.4-11.0)
[2020-08-28 12:20] LABS: Anion Gap 6 (5-15); BUN 16 mg/dL (7-18); BUN/Creat Ratio 16.1 RATIO (10-20); Calcium,Total 8.8 mg/dL (8.5-10.1); Chloride 103 mmol/L (98-107); Creatinine, Serum 0.99 mg/dL (0.55-1.02); EST Glomerular Filtration Rate 60 mL/min (>60); Est Glom Filt Rate - Afr Amer 72 mL/min (>60); Estimated Creatinine Clearance 53.74 ml/min; Glucose 122 mg/dL (74-106); Potassium 3.6 mmol/L (3.5-5.1); Sodium Level 139 mmol/L (136-145)
--- NOTE | 2020-08-28 13:36 | NURSING ---
MED SURG [facility] 13, INTRACTABLE PAIN
--- NOTE | 2020-08-28 14:21 | MRI_ITS ---
STUDY: MRI LUMBAR SPINE WITH AND WITHOUT CONTRAST REASON FOR EXAM: Female, 65 years old.reported history of endometrial carcinoma presenting for initial staging examination. possible cord compression TECHNIQUE: Standardized fat and water weighted pulse sequences were obtained in the sagittal and axial planes. dotarem 17ml iv was administered for the contrast portion of the examination. COMPARISON: CT of the lumbar spine dated AUGUST 28, 2020. Bone scan dated July 28, 2020. CT of abdomen and pelvis dated July 30, 2020 FINDINGS: Acute comminuted pathologic fracture of the L3 vertebral body reidentified with 50% loss of vertebral body height and mild retropulsion. No significant displacement of the osseous fragments. Diffuse edema is present in the bilateral pedicles and portions of the facet joints. The L3 vertebral body and the right pedicle are infiltrated with tumor. There is mild tumor cortical erosion posterior cortex of the L3 vertebral body into the midline and right anterior epidural space, which enhances on the postcontrast portion of the study. The L3 vertebral body also diffusely enhances on the postcontrast portion of the study. Peripherally enhancing complex fluid/soft tissue masses are present in the right psoas muscle at the L3 level as well as the L4-L5 level measuring 4.77 cm and 3.26 cm respectively. The L2-L3 and L3-L4 intervertebral disc are edematous. No additional metastatic lesions are seen in the remaining bony structures. Mild multilevel disc space narrowing is present but no significant disc herniation or bulging is seen. Normal central canal and bilateral intervertebral neural foramina. Normal lumbar lordosis. There is no substantial scoliosis. Normal conus medullaris that terminates at the T12-L1 level. The distal aspect of the spinal cord is normal in signal and morphology. There is no evidence of cord compression. Right lateral recess stenosis with nerve root compression is demonstrated at the L2-L3 level due to mass effect from the extruded tumor material. No demonstrated cauda equina nodularity or enhancement on the current study. Mild facet degenerative changes are present at several levels. Normal bilateral intervertebral neural foramina. Normal visualized sacral ala. There is mild paraspinal muscular atrophy. MRI/Spine Lumbar W/WO Contrast IMPRESSION: 1. Metastatic disease to the L3 vertebral body with an associated pathologic fracture 2. Tumor extension through the posterior cortex of the L3 vertebral body into the anterior dural space at L3 3. Right psoas muscle enhancing metastatic masses measuring 4.77 cm and 3.26 cm at the L3 level as well as the L4-L5 level. 4. The distal aspect of the spinal cord is normal in signal and morphology. There is no evidence of cord compression. 5. Right lateral recess stenosis with nerve root compression is demonstrated at the L2-L3 level due to mass effect from the extruded tumor material. No demonstrated cauda equina nodularity or enhancement on the current study. Electronically Signed: Chris Moran MD at 18:28 EDT , Service support ,
--- NOTE | 2020-08-28 14:29 | PCM.HP.STD ---
Problem List (1) Back pain Status: Acute Qualifiers: Back pain location: low back pain (2) History of appendectomy Status: Chronic (3) History of tonsillectomy Status: Chronic (4) History of endometrial cancer Status: Chronic Comment: Stage 111C1 Grade 3 (5) H/O colonoscopy Status: Acute (6) History of total abdominal hysterectomy Status: Chronic (7) History of salpingo-oophorectomy Status: Chronic (8) Bone destruction Status: Chronic (9) Pathologic fracture Status: Acute History of Present Illness Date of Admission: 08/28/20 Chief Complaint: back pain The patient is a 65 year old F presents with worsening back pain. Patient has been having back pain over the past month or so. Patient had MRI of her lumbar spine back in June that showed an L3 lesion. Patient saw spine surgery at that time and was referred over to pain management for further recommendations. Approximately 3 weeks ago, patient had an epidural that left her with paresthesias and pain radiating down her right leg but also across her pelvis. Patient presented to the emergency room last night with just worsening back pain and received medications and felt better and did go home. After the medications wore off in the morning, the back pain is to where it was previously. And patient again presented to the emergency room. Patient had a CAT scan that showed compression fracture of the L3 vertebrae with some retropulsion of fragments. The emergency room physician contacted Drs. Ayers and Raquel. MRI has been ordered from the emergency room in regards to this worsening fracture in her lumbar spine. In the emergency room she received IV hydromorphone, IV lorazepam, Zofran. Feeling somewhat better at this time. Patient had that whenever she moves her back pain gets worse and is worse when she stands on her right foot. [] Past Medical History Past Medical History (Chronic Problems): Chronic Problems (Last Reviewed 08/21/20 @ 13:38 by Shelly Mcelroy) History of appendectomy (Chronic) History of tonsillectomy (Chronic) History of endometrial cancer (Chronic) Stage 111C1 Grade 3 History of total abdominal hysterectomy (Chronic) History of salpingo-oophorectomy (Chronic) Bone destruction (Chronic) Medical History: Medical History (Last Reviewed 08/28/20 @ 14:[address] Feliz Nguyen, DO) Endometrial cancer C54.1 Renal insufficiency N28.9 Seasonal allergies J30.2 Allergies ibuprofen Adverse Reaction (Intermediate, Verified 08/28/20 11:13) Abd cramps/diarrhea codeine Adverse Reaction (Verified 08/28/20 11:13) Rash Home Medications: Ambulatory Orders Medication Instructions Recorded Dexamethasone [Decadron] 4 mg PO BIDCM #20 tablet 08/19/20 fentaNYL patch [Duragesic patch] 75 mcg TRANSDERM. Q72H 08/21/20 Naldemedine Tosylate [Symproic] 0.2 mg PO DAILY 08/27/20 Oxycodone HCl 10 mg PO TID 08/27/20 Surgical History: Surgical History (Last Reviewed 08/28/20 @ 14:[address] Feliz Nguyen DO) History of appendectomy Z90.49 History of tonsillectomy Z90.89 Smoking Status: Never smoker Tobacco Use: Non-smoker - *Family History Maternal Family History: Family History (Last Reviewed 08/28/20 @ 14:[address] Feliz Nguyen DO) Brother Lymphoma Grandmother Breast cancer Stomach cancer Grandfather Carcinoma of heart Mother Breast cancer Other Liver cancer Review of Systems Constitutional: Denies: Anorexia, Chills, Fever, Night Sweats Eyes: Denies: Blurred vision, Double vision HEENT: Denies: Head Aches, Sinus Congestion, Sinus Drainage Cardiovascular: Denies: Chest Pain, Palpitations Respiratory: Denies: Cough, Shortness of breath at rest, Sputum production Gastrointestinal: Denies: Abdominal Pain, Nausea, Vomiting Genitourinary: Denies: Dysuria Musculoskeletal: Denies: Joint Pain, Joint Tenderness Skin: Denies: Rash, Wounds Neurological: Reports: Numbness. Denies: Focal weakness, Tingling Psychiatric: Denies: Anxiety, Depression Comment: All review of systems were negative except as mentioned above in the history of present illness and the other review of systems. VTE Information - Inpt Only VTE Present on Admission: No VTE Mechan Device Prophylaxis: None VTE Pharm Prophylaxis ordered?: No Reason prophylaxis not ordered:: Treatment Not Indicated Patient Problems: Active and Suspected Problems (Last Reviewed 08/21/20 @ 13:38 by Shelly Mcelroy) Pathologic fracture (Acute) - Physical Exam Vitals/I&O's: Vital Signs Temp Pulse Resp BP Pulse Ox 36.7 C 80 19 H 146/96 H 98 08/28/20 13:37 08/28/20 13:37 08/28/20 13:37 08/28/20 13:37 08/28/20 13:37 Oxygen Delivery Method Room Air Weight: 88.451 kg Body Mass Index (BMI) 31.4 General: Alert, Cooperative, No apparent distress HEENT: Atraumatic, Normocephalic Oral: Moist Mucosa, No Gingival or Mucosal Lesions/ Ulcerations Neck: No Nodes, Thyroid Normal Size and Texture Lungs: Clear to auscultation, Normal air movement, No rhonchi, No wheeze, No rales Cardiovascular: Regular rate, Regular Rhythm, Normal S1, Normal S2, No murmurs Abdomen: Bowel Sounds Present, Soft, Non Tender, Non-Distended, No Hepato-splenomegaly Extremities: No edema, No Calf Tenderness Skin: No rashes, No breakdown Musculoskeletal: No Tenderness to Palpation of Joints or Extremities, No Muscle Wasting Neurological: - - Finish sensation on the right leg compared to left. Muscle strength appears to be intact in the right lower extremity with dorsal and plantar flexion of the feet. Did not assess higher strength due to pain. Psych/Mental Status: Normal Affect, Appropriate Laboratory Results 08/28/20 11:57: WBC 11.1 H, RBC 5.93 H, Hgb 17.1 H, Hct 52.5 H, MCV 88.5, MCH 28.8, MCHC 32.6, RDW Std Deviation 43.7, RDW Coeff of Tahir 13.5, Plt Count 233, MPV 11.4, Immature Gran % (Auto) 2.200 H, Neut % (Auto) 78.9 H, Lymph % (Auto) 12.7 L, [place] % (Auto) 5.6, Eos % (Auto) 0.1, Baso % (Auto) 0.5, Absolute Neuts (auto) 8.8 H, Absolute Lymphs (auto) 1.41, Nucleated RBC % 0 08/28/20 11:57: Sodium 139, Potassium 3.6, Chloride 103, Carbon Dioxide 30.0, Anion Gap 6, BUN 16, Creatinine 0.99, Estim Creat Clear Calc 53.74, Est GFR (MDRD) Af Amer 72, Est GFR (MDRD) Non-Af 60, BUN/Creatinine Ratio 16.1, Glucose 122 H, Calcium 8.8 Clinical Impression(s) from Imaging Studies Lumbar Spine CT 08/28/20 11:31 IMPRESSION: Pathologic fracture of L3 with slight increase in loss of height compared to previous. There is an associated soft tissue mass which appears to be extending into the foramen and there may be a small associated epidural soft tissue mass. MRI lumbar spine without and with contrast could better evaluate. Individualized dose optimization techniques were used for this CT. at 1229 Reported and signed by: Kim Farrell MD Electronically Signed: Kim Farrell MD at 12:29 EDT Tel , Service support , ADDENDUM: 08/28/20 1345 IMPRESSION: Pathologic fracture of L3 with slight increase in loss of height compared to previous. There is an associated soft tissue mass which appears to be extending into the foramen and there may be a small associated epidural soft tissue mass. MRI lumbar spine without and with contrast could better evaluate. Individualized dose optimization techniques were used for this CT. at 1229 Reported and signed by: Kim Farrell MD N.B. : ESTER Haredn, confirmed on 08/28/2020 13:38:10 (ET) that the healthcare facility has received the radiology report. Electronically Signed: Kim Farrell MD at 12:29 EDT Tel , Service support , Current Medications Hydromorphone HCl (Hydromorphone 1 Mg/Ml Syringe) 1 - 2 mg IV X1 ONE Stop: 08/28/20 14:25 Iopamidol (Contrast Allergy Safety Check) 0 ml IV X1 JEANNETTE Lorazepam (Lorazepam 2 Mg/Ml Syringe) 1 - 2 mg IV X1 ONE Stop: 08/28/20 14:25 Assessment/Plan All Active Problems (Last Reviewed 08/21/20 @ 13:38 by Shelly Mcelroy) H/O colonoscopy (Acute) Pathologic fracture (Acute) Back pain (Acute) 1. Acute on chronic back pain Secondary to pathologic fracture due to underlying malignancy Refractory to fentanyl and scheduled oxycodone at home. Will continue with that regimen but also add as needed oral as well IV hydromorphone. Consult to pain management for further recommendations. 2. L3 mass Reviewed images with the patient and her significant other at bedside. Patient had an MRI from June that showed mostly the vertebrae was intact but now it is collapse with retropulsion of fragments. The initial plan was the patient to see Dr. Sotelo of pain management to undergo kyphoplasty as well biopsy of the lesion. For the patient's that that will be determined by Dr. García if it is amenable to kyphoplasty or not given the retropulsion that I am seeing at this time. It may help palliate her symptoms if it can be safely done. Patient states that she wants to have with dignity program. Patient has researched that in certain states as well as countries, when she become a resident you can be stopped with the physician will do with dignity which would either be physician assisted suicide or physician health care legal assistant . That is not the state of [place]. I told her that from our perspective is a matter of palliating her symptoms. I told her if she does not want to have chemotherapy perhaps not having a biopsy may be appropriate since it ultimately would not change her management. Though she could benefit from palliative radiation given her dramatic amount of pain that she is having. So we will consult pain management for further pain control and whether or not this would be medical kyphoplasty or biopsy as well as radiation oncology Discussed with Dr. Bowen who recommended getting a biopsy in case she were to change her mind at a later point and if we are to do radiation it may obliterate the tissue where we could not get a satisfactory biopsy result. Will hold off on consulting medical oncology unless patient wishes to proceed with chemotherapy which we cannot at this time without a biopsy. 3. L3 compression fracture This is a pathologic fracture due to cancer of unknown primary. Pain management as well as spine surgery consults. Page to spine surgery to see what recommendations they have for brace for her if any at all. 4. VTE prophylaxis: Not indicated given the observation status currently. 5. Advanced care planning: Discussed with the patient. Patient wishes to be DNR Comfort Care arrest, no intubation, no tracheostomy and no transfusions. OBSV E&M: [id number] Initial observation care L3
[2020-08-28] MEDS: LORazepam 2 MG/ML Syringe IV (14:35)
--- NOTE | 2020-08-28 16:00 | NURSING ---
dr brown out of town-dr vazquez is covering-yudi @ office aware of consult and she will inform
--- NOTE | 2020-08-28 16:40 | NURSING ---
pt arrived back to room. drowsy but easily awakens. call light within reach. bedexit maintained
--- NOTE | 2020-08-28 17:34 | NURSING ---
decadron not on unit for pt administration-Rx sent msg to please send holding fentanyl patch at this time d/t pt sleepiness from premed for MRI
--- NOTE | 2020-08-28 19:05 | EKG12_ITS ---
Test Reason : PRE OP Blood Pressure : / mmHG Vent. Rate : 100 BPM Atrial Rate : 267 BPM P-R Int : 000 ms QRS Dur : 082 ms QT Int : 344 ms P-R-T Axes : 000 049 087 degrees QTc Int : 443 ms Atrial fibrillation with premature ventricular or aberrantly conducted complexes Nonspecific T wave abnormality , probably digitalis effect Abnormal ECG No previous ECGs available Confirmed by DEANGELO PICHARDO, RIYA ([id number]), editorial assistant BEULAH NI ([id number]) on 09/05/2020 3:03:04 PM Referred By: MARTELL Confirmed By:ERICA BRIGHT MD
[2020-08-28] MEDS: dexAMETHasone 4 MG Tablet PO (19:27)
--- NOTE | 2020-08-28 20:28 | PN_ITS ---
Progress Note Preoperative twelve-lead EKG with A. fib. Ventricular rate 100. Nurse reports that by patient's she has a history of abnormal rhythm found one time at [facility]. Potassium currently 3.6. Will replace. Will check magnesium and TSH. Patient is scheduled for epidural injection and will not institute anticoagulation at this time. Will put patient on telemetry. STROKE Vital Signs/Narrative: Vital Signs Temp Pulse Resp BP Pulse Ox 08/28/20 19:50 97.5 F L 91 17 151/90 H 98 08/28/20 17:49 98.0 F 97 16 129/83 H 99 08/28/20 17:09 98.1 F 84 16 129/83 H 99 08/28/20 16:40 98.4 F 112 H 16 158/94 H 100
[2020-08-28 21:04] LABS: Magnesium 2.2 mg/dL (1.6-2.6); Thyroid Stim Hormone (TSH) 1.14 uIU/mL (0.358-3.74)
[2020-08-28] MEDS: oxyCODONE 5 MG Tablet 10 MG PO (21:58)
[2020-08-28] MEDS: Potassium Chloride Oral Tablet 20 MEQ 40 MEQ PO (21:59)
[2020-08-28] MEDS: Metoprolol Tartrate 5 MG/5 ML Vial IV (22:54)
[2020-08-29] VITALS (26 sets, daily range): BP systolic 133–156; BP diastolic 83–101; PULSE 64–170; RESP 15–18; TEMP 36.3–36.7; O2SAT 18–100; BMI 29.8
[2020-08-29] MEDS: HYDROmorphone 2 MG TABLET PO ×2 (02:44→17:37)
[2020-08-29] MEDS: oxyCODONE 5 MG Tablet 10 MG PO ×2 (06:17→22:58)
[2020-08-29 06:40] LABS: International Normalized Ratio 1.1; Prothrombin Time (Protime)PT. 13.7 SECONDS (11.7-14.9)
[2020-08-29] MEDS: Metoprolol Tartrate 5 MG/5 ML Vial IV ×2 (08:54→18:30)
[2020-08-29] MEDS: Ondansetron 4 MG/2 ML Vial IV (08:58)
[2020-08-29] MEDS: HYDROmorphone 1 MG/ML Syringe IV ×4 (08:59→16:03)
[2020-08-29] MEDS: dexAMETHasone 4 MG Tablet PO ×2 (09:05→17:38)
--- NOTE | 2020-08-29 09:34 | CASEMGMT ---
Social Work Note SW received consult for Hospice Referral. Pt has no PCP, per [facility], if pt is agreeable to their doctors they can take pt's without PCPs. SW in to speak with pt. SW introduced self and role at [facility]. Pt is alert and orientated. Pt agreeable to Hospice referral, agreeable to Hospice doctors, and wants to return home with Hospice. RABIA informed pt that this worker will send referral to Hospice. Pt prefers for Hospice to call her in regards to referral and also states she has spoken with Luis before at Hospice and prefers to speak with her again. RABIA placed a call to [facility] and provided referral to PRATIK Dean. RABIA informed Dianne that pt has talked to Luis before and prefers to speak to Luis again if able. RABIA faxed referral. Plan: Hospice referral made Estefania Berg [employer], CONTRACT CLERK
--- NOTE | 2020-08-29 10:50 | PCM.PN.HOSP ---
Patient Problems: Active and Suspected Problems (Last Reviewed 08/28/20 @ 14:[address] Feliz Nguyen, DO) H/O colonoscopy (Acute) Pathologic fracture (Acute) Back pain (Acute) Subjective: Afib overnight. HR going into 180s with simply getting up. Pain slightly better, currently at rest 7.5/10. Worse when she stands up. Vitals/I&O's: Vital Signs Temp Pulse Resp BP Pulse Ox 36.7 C 89 18 144/91 H 100 08/29/20 09:10 08/29/20 09:10 08/29/20 09:10 08/29/20 09:10 08/29/20 09:10 Oxygen Flow Rate (L/min) 4 Oxygen Delivery Method Nasal Cannula Weight: 83.8 kg Body Mass Index (BMI) 29.8 Intake and Output for Last 24 Hours 08/27/20 08/28/20 08/29/20 23:59 23:59 23:59 Intake Total 100 / 100 600 / 600 Balance 100 / 100 600 / 600 General: Alert, No apparent distress HEENT: Atraumatic, Normocephalic Extremities: No edema, No Calf Tenderness Skin: No rashes, No breakdown Musculoskeletal: No Tenderness to Palpation of Joints or Extremities, No Muscle Wasting Neurological: - - diminished sensation in RLE. diminished DTR in RLE compared to left. Microbiology Past 72 Hours 08/28/20 19:30 Mucosa - Nose SARS-CoV-2 Antigen (Rapid) - Final Laboratory Results 08/28/20 11:57: WBC 11.1 H, RBC 5.93 H, Hgb 17.1 H, Hct 52.5 H, MCV 88.5, MCH 28.8, MCHC 32.6, RDW Std Deviation 43.7, RDW Coeff of Tahir 13.5, Plt Count 233, MPV 11.4, Immature Gran % (Auto) 2.200 H, Neut % (Auto) 78.9 H, Lymph % (Auto) 12.7 L, Carver % (Auto) 5.6, Eos % (Auto) 0.1, Baso % (Auto) 0.5, Absolute Neuts (auto) 8.8 H, Absolute Lymphs (auto) 1.41, Nucleated RBC % 0 08/28/20 11:57: Sodium 139, Potassium 3.6, Chloride 103, Carbon Dioxide 30.0, Anion Gap 6, BUN 16, Creatinine 0.99, Estim Creat Clear Calc 53.74, Est GFR (MDRD) Af Amer 72, Est GFR (MDRD) Non-Af 60, BUN/Creatinine Ratio 16.1, Glucose 122 H, Calcium 8.8 08/28/20 11:57: Magnesium 2.2, TSH 1.14 08/29/20 06:20: PT 13.7, INR 1.1 Current Medications Acetaminophen (Acetaminophen 325 Mg Tablet) 650 mg PO Q6H PRN PRN PRN Reason: Pain Score 1-10/Temp > 100.7 F Dexamethasone (Dexamethasone 4 Mg Tablet) 4 mg PO BIDCM [facility] Last Admin: 08/29/20 09:05 Dose: 4 mg Documented by: Fentanyl (Fentanyl 75 Mcg Patch) 75 mcg TD Q72H [facility] Last Admin: 08/28/20 22:05 Dose: 75 mcg Documented by: Hydromorphone HCl (Hydromorphone 2 Mg Tablet) 2 mg PO Q3H PRN PRN PRN Reason: pain 6-10/10 Last Admin: 08/29/20 02:44 Dose: 2 mg Documented by: Hydromorphone HCl (Hydromorphone 1 Mg/Ml Syringe) 1 mg IV Q2H PRN PRN PRN Reason: BREAKTHROUGH PAIN (>4/10) Last Admin: 08/29/20 08:59 Dose: 1 mg Documented by: Metoprolol Tartrate (Metoprolol Tartrate 5 Mg/5 Ml Vial) 5 mg IV Q1H PRN PRN PRN Reason: HR > 110 Last Admin: 08/29/20 08:54 Dose: 5 mg Documented by: Non-Formulary Medication (Naldemedine Tosylate [Symproic]) 0.2 mg PO DAILY [facility] Ondansetron HCl (Ondansetron 4 Mg/2 Ml Vial) 4 mg IV Q8H PRN PRN PRN Reason: NAUSEA/VOMITING Last Admin: 08/29/20 08:58 Dose: 4 mg Documented by: Oxycodone HCl (Oxycodone 5 Mg Tablet) 10 mg PO TID [facility] Last Admin: 08/29/20 06:17 Dose: 10 mg Documented by: Sodium Chloride (0.9% Saline Lock 10 Ml Syringe) 10 - 40 ml IV UD PRN PRN Reason: SALINE FLUSH STROKE Vital Signs/Narrative: Vital Signs Temp Pulse Resp BP Pulse Ox 08/29/20 09:10 36.7 C 89 18 144/91 H 100 08/29/20 09:00 89 18 98 08/29/20 08:54 170 H 156/100 H 08/29/20 08:37 93 08/29/20 08:21 36.7 C 150 H 18 156/100 H 92 Medical Necessity - Tobacco Use Smoking Status: Never smoker Tobacco Use: Non-smoker Assessment/Plan All Active Problems (Last Reviewed 08/28/20 @ 14:[address] Feliz Nguyen, DO) H/O colonoscopy (Acute) Pathologic fracture (Acute) Back pain (Acute) 1. Acute on chronic back pain Secondary to pathologic fracture due to underlying malignancy Refractory to fentanyl and scheduled oxycodone at home. Will continue with that regimen but also add as needed oral as well IV hydromorphone. Pain mgmt to perform an epidural. 2. L3 mass Reviewed images with the patient and her significant other at bedside. Patient had an MRI from June that showed mostly the vertebrae was intact but now it is collapse with retropulsion of fragments. The initial plan was the patient to see Dr. Sotelo of pain management to undergo kyphoplasty as well biopsy of the lesion. For the patient's that that will be determined by Dr. García if it is amenable to kyphoplasty or not given the retropulsion that I am seeing at this time. It may help palliate her symptoms if it can be safely done. Patient states that she wants to have with dignity program. Patient has researched that in certain states as well as countries, when she become a resident you can be stopped with the physician will do with dignity which would either be physician assisted suicide or physician legal assistant . That is not the state of [place]. I told her that from our perspective is a matter of palliating her symptoms. I told her if she does not want to have chemotherapy perhaps not having a biopsy may be appropriate since it ultimately would not change her management. Though she could benefit from palliative radiation given her dramatic amount of pain that she is having. So we will consult pain management for further pain control and whether or not this would be medical kyphoplasty or biopsy as well as radiation oncology Discussed with Dr. Bowen who recommended getting a biopsy in case she were to change her mind at a later point and if we are to do radiation it may obliterate the tissue where we could not get a satisfactory biopsy result. Will hold off on consulting medical oncology unless patient wishes to proceed with chemotherapy which we cannot at this time without a biopsy. 3. L3 compression fracture This is a pathologic fracture due to cancer of unknown primary. Pain management as well as spine surgery consults. MRI reviewed and confirmed collapse of L3 vertebra. Also rihgt lateral recess stenosis with nerve root compression at L2-L3 from mass. Ortho spine on consult 4. VTE prophylaxis: Not indicated given the observation status currently. 5. Advanced care planning: Discussed with the patient. Patient wishes to be DNR Comfort Care arrest, no intubation, no tracheostomy and no transfusions. Pt not established with palliative care since she does not have PCP. Will consult hospice. Since patient not electing to proceed with treatment (unless strictly palliative), ultimately patient will succumb to her malignancy and I feel is hospice appropriate. greater than 25 minutes of which greater than 50% of the time was discussing with the patient about her MRI findings, current plan and hospice. Inpatient E&M: [id number] Subs Hosp L2
--- NOTE | 2020-08-29 11:41 | NURSING ---
attempt to insert #16 f/c unsucessful x2 w/ 2 nurses-able to identify urinary meatus but catheter will not progress and travels in a downward motion-pt tolerated well
[2020-08-29] MEDS: Lactated Ringers 1,000 ML 100 ML IV (13:20)
--- NOTE | 2020-08-29 14:35 | RAD_ITS ---
PROCEDURE: Epidural injection DATE OF EXAMINATION: 08/29/2020 INDICATION: Female, 65 years old. Low back pain. FLUOROSCOPY TIME (if supplied): (24 seconds) minutes/seconds. 2 images were obtained. Intraoperative imaging provided for epidural block at the L4-L5 level. RAD/Fluor Guidance for Spine Inj IMPRESSION: Intraoperative view provided for L4-L5 epidural block. Electronically Signed: Marino Agudelo MD at 15:15 EDT , Service support ,
--- NOTE | 2020-08-29 14:42 | CASEMGMT ---
Social Work Note SW placed a call to [facility] for update regarding referral. SW updated that Luis will be coming to [facility] at 3:00pm to meet with pt and pt's family. Estefania Berg MSW, SOCK BOARDER
[2020-08-29] MEDS: Triamcinolone Acetonide 40 MG/ML Vial (14:48)
[2020-08-29] MEDS: Lidocaine 0.5% (50 ml) 50 ML Vial (14:48)
--- NOTE | 2020-08-29 14:53 | OP.PCM_ITS ---
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, lumbar region Status: Acute (7) Connective tissue and disc stenosis of intervertebral foramina of lumbar region Status: Acute (8) Bone destruction Status: Chronic (9) Pathologic fracture Status: Acute (10) Back pain Status: Acute Qualifiers: Back pain location: low back pain Report of Operation Date of Procedure: 08/29/20 Pre-Operative Diagnosis: L3 lumbar compression fracture,/pathological fracture due to metastatic cancer, causing lumbar spinal stenosis, acute on radiculopathy, lumbar foraminal stenosis and severe back pain Post-Operative Diagnosis: Same Surgery/Procedure Performed:: Lumbar epidural steroid injection at the lower interlaminar right side L3-4 under fluoroscopy guidance Description of Surgical Findings:: Under sterile conditions. Patient placed in the prone position, pressure points were padded, patient was ready from the nursing and the anesthesia team. After identification of the side and the target area for the block under guided fluoroscopy, the entry site was marked with marking pen. I used Betadine for sterilization of the skin, sterile draping were applied. Using 25-gauge needle to infiltrate the skin with local anesthesia using preservative-free lidocaine 1 % injected 2.5 mL at site of entry. Using guided fluoroscopy, accessed the the posterior epidural space using 18- gauge Touhy needles under midline approach, accessed the site was assisted with lateral fluoroscopy, followed by using [id number] technique using preservative-free normal saline, negative aspiration of CSF and blood. Injected contrast solution 1.5 mL under live fluoroscopy which showed good spread of the contrast to the posterior epidural space and to the targeted area of the injection at[ L3-4], interlaminar approach lateral except the right side. Injected [4] mL of mixture of preservative-free lidocaine 0.5% and Kenalog [80] mg for the procedure which showed appropriate spread in the epidural space. Coward was removed, pressure dressing were applied. Patient tolerated the procedure well and was taken to the recovery. Type of Anesthesia:: Local MAC Estimated Blood Loss (mL): No blood l - Complications No complication, patient has intact neurological function after procedure
--- NOTE | 2020-08-29 16:05 | NURSING ---
hospice nurse here to speak w/pt and family-pt very painful after walk to BR, pain is 10/10-medicated for pain
--- NOTE | 2020-08-29 17:37 | CASEMGMT ---
Social Work Note SW received update from Hospice stating plan is for pt to discharge home tomorrow with Hospice. Hospice requests to be notified of time when pt discharges and to be faxed discharge summary/instructions. SW placed Green sheet on chart. Plan: Home with Hospice tomorrow Estefania Berg HUMAN RELATIONS TEACHER, WATER CHEMIST
[2020-08-29] MEDS: Gabapentin 300 MG Capsule PO ×2 (17:38→22:58)
[2020-08-29] MEDS: Orphenadrine 60 MG/2 ML Ampul IM (18:31)
[2020-08-29] MEDS: Metaxalone 800 MG Tablet PO (23:00)
[2020-08-30] VITALS (7 sets, daily range): BP systolic 103–140; BP diastolic 66–90; PULSE 77–161; RESP 16–18; TEMP 36.5–36.9; O2SAT 99–100
[2020-08-30] MEDS: Metaxalone 800 MG Tablet PO ×2 (06:47→12:56)
[2020-08-30] MEDS: oxyCODONE 5 MG Tablet 10 MG PO ×2 (06:47→13:16)
[2020-08-30] MEDS: Gabapentin 300 MG Capsule PO ×2 (06:47→13:16)
[2020-08-30] MEDS: dexAMETHasone 4 MG Tablet PO (08:47)
--- NOTE | 2020-08-30 10:40 | PCM.DC ---
- Discharge Diagnoses Current Active Problems: Current Active and Chronic Problems (Last Reviewed 08/28/20 @ 14:[address] Feliz Nguyen, DO) History of appendectomy (Chronic) History of tonsillectomy (Chronic) History of endometrial cancer (Chronic) Stage 111C1 Grade 3 H/O colonoscopy (Acute) History of total abdominal hysterectomy (Chronic) History of salpingo-oophorectomy (Chronic) Bone destruction (Chronic) Pathologic fracture (Acute) Back pain (Acute) Lumbar radiculopathy, acute (Acute) Lumbar radiculopathy, acute (Acute) Degenerative lumbar spinal stenosis (Acute) Spinal stenosis, lumbar region with neurogenic claudication (Acute) Foraminal stenosis of lumbar region (Acute) Connective tissue and disc stenosis of intervertebral foramina, lumbar region (Acute) Connective tissue and disc stenosis of intervertebral foramina of lumbar region (Acute) You will use the following diet at home:: No restrictions Discharge Activity: Use Walker, - - up with assistance Call your doctor if you observe: Uncontrolled pain Allergies/Adverse Reactions: Allergies ibuprofen Adverse Reaction (Intermediate, Verified 08/28/20 11:13) Abd cramps/diarrhea codeine Adverse Reaction (Verified 08/28/20 11:13) Rash Medications to take at Discharge Dexamethasone [Decadron] 4 mg PO BIDCM #20 tablet 08/19/20 fentaNYL patch [Duragesic patch] 75 mcg TRANSDERM. Q72H 08/21/20 Oxycodone HCl 10 mg PO TID 08/27/20 Acetaminophen [Tylenol Tablet] 650 mg PO Q6H PRN PRN tablet 08/30/20 Gabapentin [Neurontin] 300 mg PO Q8H #90 capsule 08/30/20 HYDROmorphone tablet [Dilaudid] 2 mg PO Q3H PRN PRN 7 Days #42 tablet 08/30/20 Metaxalone [Skelaxin] 800 mg PO Q6H #30 tablet 08/30/20 Naldemedine Tosylate [Symproic] 0.2 mg PO DAILY 08/30/20 The following prescriptions were given: HYDROmorphone tablet [Dilaudid] 2 mg PO Q3H PRN PRN 7 Days #42 tablet PRN Reason: pain 6-03/08 Transmission Status: Sent to [facility] Gabapentin [Neurontin] 300 mg PO Q8H #90 capsule Transmission Status: Pending to [facility] Metaxalone [Skelaxin] 800 mg PO Q6H #30 tablet Transmission Status: Pending to [facility] Primary Care Physician: Rich Sotelo MD [Primary Care Provider] - Test Results: Test results from this visit will be discussed in further detail at your follow-up appointment, if applicable. Please Follow Up With: Mauricio Robbins DO When: 1 week Proposed Discharge Date: 08/30/20
--- NOTE | 2020-08-30 10:41 | DS.PCM_ITS ---
Discharge Date and Diagnosis - Problem List Patient Problems: Active and Suspected Problems (Last Reviewed 08/28/20 @ 14:[address] Feliz Nguyen, DO) Pathologic fracture (Acute) Back pain (Acute) Lumbar radiculopathy, acute (Acute) Lumbar radiculopathy, acute (Acute) Date of Admission: 08/28/20 Date of Discharge: 08/30/20 - Primary Discharge Diagnosis Acute Problems: Active Problems (Last Reviewed 08/28/20 @ 14:[address] Feliz Nguyen, ) 1. Acute on chronic back pain Secondary to pathologic fracture due to underlying malignancy Refractory to fentanyl and scheduled oxycodone at home. Will continue with that regimen but also add as needed oral as hydromorphone. Pain mgmt performed an epidural at L3-4. 2. L3 mass Reviewed images with the patient and her significant other at bedside. Patient had an MRI from June that showed mostly the vertebrae was intact but now it is collapse with retropulsion of fragments. The initial plan was the patient to see Dr. Sotelo of pain management to undergo kyphoplasty as well biopsy of the lesion. For the patient's that that will be determined by Dr. García if it is amenable to kyphoplasty or not given the retropulsion that I am seeing at this time. It may help palliate her symptoms if it can be safely done. Patient states that she wants to have with dignity program. Patient has researched that in certain states as well as countries, when she become a re sident you can be stopped with the physician will do with dignity which would either be physician assisted suicide or physician assistant art director . That is not the state of [place]. I told her that from our perspective is a matter of palliating her symptoms. I told her if she does not want to have chemotherapy perhaps not having a biopsy may be appropriate since it ultimately would not change her management. Though she could benefit from palliative radiation given her dramatic amount of pain that she is having. So we will consult pain management for further pain control and whether or not this would be medical kyphoplasty or biopsy as well as radiation oncology Discussed with Dr. Bowen who recommended getting a biopsy in case she were to change her mind at a later point and if we are to do radiation it may obliterate the tissue where we could not get a satisfactory biopsy result. Will hold off on consulting medical oncology unless patient wishes to proceed with chemotherapy which we cannot at this time without a biopsy. Patient met with hospice and patient will be discharged to hospice today in stable condition. 3. L3 compression fracture This is a pathologic fracture due to cancer of unknown primary. Pain management as well as spine surgery consults. MRI reviewed and confirmed collapse of L3 vertebra. Also right lateral recess stenosis with nerve root compression at L2-L3 from mass. Not amenable to surgery Additionally, she has a right psoas muscle mass . - Secondary Discharge Diagnosis Chronic Problems: Chronic Problems (Last Reviewed 08/28/20 @ 14:[address] Feliz Nguyen, DO) History of appendectomy (Chronic) History of tonsillectomy (Chronic) History of endometrial cancer (Chronic) Stage 111C1 Grade 3 History of total abdominal hysterectomy (Chronic) History of salpingo-oophorectomy (Chronic) Bone destruction (Chronic) Hospital Course and Treatment Imaging Results: Clinical Impression(s) from Imaging Studies Lumbar Spine CT 08/28/20 11:31 IMPRESSION: Pathologic fracture of L3 with slight increase in loss of height compared to previous. There is an associated soft tissue mass which appears to be extending into the foramen and there may be a small associated epidural soft tissue mass. MRI lumbar spine without and with contrast could better evaluate. Individualized dose optimization techniques were used for this CT. at 1220 Reported and signed by: Kmi Farrell MD Electronically Signed: Kim Farrell MD at 12:29 EDT Tel , Service support , ADDENDUM: 08/28/20 1347 IMPRESSION: Pathologic fracture of L3 with slight increase in loss of height compared to previous. There is an associated soft tissue mass which appears to be extending into the foramen and there may be a small associated epidural soft tissue mass. MRI lumbar spine without and with contrast could better evaluate. Individualized dose optimization techniques were used for this CT. at 1229 Reported and signed by: Kim Farrell MD N.B. : ESTER Harden, confirmed on 08/28/2020 13:38:10 (ET) that the healthcare facility has received the radiology report. Electronically Signed: Kim Farrell MD at 12:29 EDT Tel , Service support , Lumbar Spine MRI 08/28/20 14:21 IMPRESSION: 1. Metastatic disease to the L3 vertebral body with an associated pathologic fracture 2. Tumor extension through the posterior cortex of the L3 vertebral body into the anterior dural space at L3 3. Right psoas muscle enhancing metastatic masses measuring 4.77 cm and 3.26 cm at the L3 level as well as the L4-L5 level. 4. The distal aspect of the spinal cord is normal in signal and morphology. There is no evidence of cord compression. 5. Right lateral recess stenosis with nerve root compression is demonstrated at the L2-L3 level due to mass effect from the extruded tumor material. No demonstrated cauda equina nodularity or enhancement on the current study. Electronically Signed: Chris Moran MD at 18:28 EDT , Service support , Guidance Fluoroscopy 08/29/20 14:35 IMPRESSION: Intraoperative view provided for L4-L5 epidural block. Electronically Signed: Marino Agudelo MD at 15:15 EDT , Service support , [facility], pain mgmt Operations: - - epidural at L3-4 Summary of Care Provided: The patient is a 65 year old F presents with worsening back pain and radicular right leg pain. In June patient was diagnosed with a pathological mass and L3 vertebrae. Patient continued to get worse despite having an epidural and the pain was unrelenting so the patient presented to the emergency room. She had a CAT scan in the emergency room that showed a fracture of the L3 vertebrae that was significant change from the MRI that she had done in June. Patient was admitted for further pain control. Patient had MRI that confirmed further fracture of the L3 vertebrae but also posterior extension of the fracture without spinal cord impingement. Patient did have nerve root compression noted at L2-L3 due to the mass.'s plan was for pain management and patient did have an epidural at the L3-L4 level performed on the second. Patient stated that she did have some improvement with that as compared to previous epidural she had worsening of her pain. For the cancer, patient initially expressed desire for a with dignity program which is basically physician assisted suicide her physician assisted . Patient was not interested in chemotherapy was open to the prospect of radiation strictly for palliation. No biopsy would be attempted as it would ultimately not change the course of her treatment since she was not proceeding with any chemo. Patient did meet with hospice and plan is for the patient to go home with hospice today and wants to get the appropriate equipment arranged for her at her home. [] Patient Problems: Active and Suspected Problems (Last Reviewed 08/28/20 @ 14:[address] Feliz Nguyen, DO) Pathologic fracture (Acute) Back pain (Acute) Lumbar radiculopathy, acute (Acute) Lumbar radiculopathy, acute (Acute) Subjective: pain over all improved, but still worse with movement. - Physical Exam Vitals/I&O's: Vital Signs Temp Pulse Resp BP Pulse Ox 36.6 C 161 H 18 103/66 100 08/30/20 08:41 08/30/20 09:56 08/30/20 08:41 08/30/20 09:56 08/30/20 10:40 Oxygen Flow Rate (L/min) 1 Oxygen Delivery Method Room Air Weight: 83.8 kg Body Mass Index (BMI) 29.8 Intake and Output for Last 24 Hours 08/28/20 08/29/20 08/30/20 23:59 23:59 23:59 Intake Total 100 / 100 1896.67 / 1896.67 1300 / 1300 Output Total 1000 / 1000 1050 / 1050 Balance 100 / 100 896.67 / 896.67 250 / 250 General: Alert, Cooperative, No apparent distress, - - tearful at times. HEENT: Atraumatic, Normocephalic Psych/Mental Status: Normal Affect, Appropriate Microbiology Past 72 Hours 08/28/20 19:30 Mucosa - Nose SARS-CoV-2 Antigen (Rapid) - Final Current Medications Acetaminophen (Acetaminophen 325 Mg Tablet) 650 mg PO Q6H PRN PRN PRN Reason: Pain Score 1-10/Temp > 100.7 F Dexamethasone (Dexamethasone 4 Mg Tablet) 4 mg PO BIDCM [facility] Last Admin: 08/30/20 08:47 Dose: 4 mg Documented by: Fentanyl (Fentanyl 75 Mcg Patch) 75 mcg TD Q72H [facility] Last Admin: 08/28/20 22:05 Dose: 75 mcg Documented by: Gabapentin (Gabapentin 300 Mg Capsule) 300 mg PO Q8H [facility] Last Admin: 08/30/20 06:47 Dose: 300 mg Documented by: Hydromorphone HCl (Hydromorphone 2 Mg Tablet) 2 mg PO Q3H PRN PRN PRN Reason: pain 6-10/10 Last Admin: 08/29/20 17:37 Dose: 2 mg Documented by: Hydromorphone HCl (Hydromorphone 1 Mg/Ml Syringe) 1 mg IV Q2H PRN PRN PRN Reason: BREAKTHROUGH PAIN (>4/10) Last Admin: 08/29/20 16:03 Dose: 1 mg Documented by: Metaxalone (Metaxalone 800 Mg Tablet) 800 mg PO Q6H [facility] Last Admin: 08/30/20 06:47 Dose: 800 mg Documented by: Metoprolol Tartrate (Metoprolol Tartrate 5 Mg/5 Ml Vial) 5 mg IV Q1H PRN PRN PRN Reason: HR > 120 Non-Formulary Medication (Naldemedine Tosylate [Symproic]) 0.2 mg PO DAILY [facility] Ondansetron HCl (Ondansetron 4 Mg/2 Ml Vial) 4 mg IV Q8H PRN PRN PRN Reason: NAUSEA/VOMITING Last Admin: 08/29/20 08:58 Dose: 4 mg Documented by: Oxycodone HCl (Oxycodone 5 Mg Tablet) 10 mg PO TID [facility] Last Admin: 08/30/20 06:47 Dose: 10 mg Documented by: Sodium Chloride (0.9% Saline Lock 10 Ml Syringe) 10 - 40 ml IV UD PRN PRN Reason: SALINE FLUSH Discharge Diet: No Restrictions Discharge Activity: Use Walker, - - up with assistance Call your doctor if you observe: Uncontrolled pain Home Medications: Medications to take at Discharge Dexamethasone [Decadron] 4 mg PO BIDCM #20 tablet 08/19/20 fentaNYL patch [Duragesic patch] 75 mcg TRANSDERM. Q72H 08/21/20 Oxycodone HCl 10 mg PO TID 08/27/20 Acetaminophen [Tylenol Tablet] 650 mg PO Q6H PRN PRN tablet 08/30/20 Gabapentin [Neurontin] 300 mg PO Q8H #90 capsule 08/30/20 HYDROmorphone tablet [Dilaudid] 2 mg PO Q3H PRN PRN 7 Days #42 tablet 08/30/20 Metaxalone [Skelaxin] 800 mg PO Q6H #30 tablet 08/30/20 Naldemedine Tosylate [Symproic] 0.2 mg PO DAILY 08/30/20 Following Prescriptions Were Given to Patient: HYDROmorphone tablet [Dilaudid] 2 mg PO Q3H PRN PRN 7 Days #42 tablet PRN Reason: pain 6-03/08 Transmission Status: Sent to [facility]30 Gabapentin [Neurontin] 300 mg PO Q8H #90 capsule Transmission Status: Pending to [facility] Metaxalone [Skelaxin] 800 mg PO Q6H #30 tablet Transmission Status: Pending to [facility] Primary Care Physician: Rich Sotelo MD [Primary Care Provider] - Please Follow Up With: Mauricio Robbins DO When: 1 week Disposition: Home with Hospice Minutes spent on discharge:: 35 Patient Condition:: Stable Medical Necessity - Tobacco Use Smoking Status: Never smoker Tobacco Use: Non-smoker Meaningful Use Info Meaningful Use Diagnoses (Choose all that apply): None applicable OBSV E&M: 67261 Observation care discharge
--- NOTE | 2020-08-30 11:41 | PCM.CONS.B ---
- Consult Date of Consult: 08/30/20 - Reason for Consult This is Dr. Ayers during the consultation on . This patient is reasonably well known to me. I saw her first on 28 July in my office. I ordered an MRI scan of her lumbar spine for her lumbar pain. The MRI scan demonstrated that she had metastatic involvement of the L3 vertebra. Her cervical endometrial cancer was diagnosed early 2019. Complete hysterectomy did find one lymph node on the right side that was involved. Time she chose not to have any formal treatment other than the hysterectomy. Did not wish any radiation or chemotherapy. All her caregivers have respected her wishes. She came in 2 days ago with vastly increased pain in her low back. A CT scan was performed while she was in the emergency department. She was admitted because of her severe pain and later that day I ordered an MRI scan of the lumbar spine. Her I demonstrated that the L3 vertebra has collapse particularly on the right side with some small retropulsion on the right side. This undoubtedly was a source of her apparent L4 radiculopathy. Yesterday Dr. Bates did a selective nerve root injection or an epidural. The right thigh radiculopathy is vastly improved thanks to the injection. On night Dr. Sotelo and I reviewed the MRI scan at length together. We both concluded that a kyphoplasty was probably too risky. As of the break in the posterior wall and the chance that the cement would go into the epidural space we decided that kyphoplasty was not to be. However today when I see the patient she wishes to know the results of a biopsy of that vertebra. There surely is no guarantee that the metastatic lesion is necessarily from her cervical endometrial adenocarcinoma. I think that it would be reasonable for take the biopsy from the left pedicle and vertebral body this is the side that is not collapsed. I will talk to Dr. Sotelo about that and possibly can do it this coming week. She is due to leave the hospital today. The hospice folks are preparing her home at this time. When I examined her on Tuesday it was noted that her right patellar reflex was completely absent. Her left patellar reflex fired well at 2+. The other muscle strengths were reasonable. Reflex undoubtedly was gone because of the retropulsion of fragment on the right side into the canal though not severe enough to cause her great pain in the L4 dermatome. Likely she responded very well to the injection yesterday. Our plan at this time is to proceed this coming week with biopsy of the L3 vertebra. This is the end of consultation on .
--- NOTE | 2020-08-30 14:48 | NURSING ---
gave report to music internship -
== END 2020-08-30 13:25 | disposition hospice, home (50) ==
LOC: ED 13:22 → MS3 08-29 07:33
PROVIDERS: Anesthesiology; Hospitalist; Emergency Provider Emergency Medicine; PCP Anesthesiology Pain Medicine
PROC: 3E0S3BZ Introduction of Anesthetic Agent into Epidural Space, Percutaneous Approach (ICD-10-PCS; CPT 62322; principal; 2020-08-29 13:55)
DX: M84.58XA Pathological fracture in neoplastic disease, other specified site, initial encounter for fracture (principal); C54.1 Malignant neoplasm of endometrium; C77.9 Secondary and unspecified malignant neoplasm of lymph node, unspecified; C79.51 Secondary malignant neoplasm of bone; Z79.52 Long term (current) use of systemic steroids; G89.29 Other chronic pain; C80.1 Malignant (primary) neoplasm, unspecified; Z66 Do not resuscitate; I48.91 Unspecified atrial fibrillation; M51.16 Intervertebral disc disorders with radiculopathy, lumbar region; M48.062 Spinal stenosis, lumbar region with neurogenic claudication; Z79.899 Other long term (current) drug therapy
CPT/HCPCS: 01992; 62323; 64483; 72131; 72158; 77003; 80048; 83735; 84443; 85025; 85610; 87426; 93005; 96372; 96374; 96375; 96376; 99218; 99283; A9575; J7120; A4216; G0378; J2405

== ENCOUNTER → 2020-09-02 | Outpatient (CLI) | payer OTHER, SELFPAY ==
[2020-08-29 11:45] VITALS: BMI 29.8
--- NOTE | 2020-09-02 | DISC_PTH ---
PATIENT: CHRIS YORK LOC: TEE U#:[id number] AGE/SX: 65/F ROOM: RE09/02/[address]: Dr. Rich Sotelo MD : 1955 BED: DIS: 09/02/2020 SPEC #: [id number] RECD: 09/02/20 18:26 STATUS: YOLANDA SCARLETT #: [id number] HILARIA: 09/02/20 00:[address]: Rich Sotelo DEPT: SURGICAL PATHOLOGY RECD BY: Mariama Acosta Tissues: Intervertebral disc, NOS Procedures: Decalcification bone/plaque Surgery Specimen Level V HEADER OPERATION: Kyphoplasty PRE-OP DIAGNOSIS: Fracture L3 TISSUE SUBMITTED: L3 MICROSCOPIC DIAGNOSIS L3, kyphoplasty: A piece of bone with reactive changes, clinically fracture L3. See comment. FRANK:raul 09/05/2020 COMMENT Clinical correlation and appropriate follow up are necessary. MICROSCOPIC DESCRIPTION Slides are reviewed. GROSS DESCRIPTION Received is one container labeled with the patient's name and not further designated. The specimen consists of a fragment of bone mixed with blood clot measuring in aggregate 0.4 x 0.4 x 0.1 cm. The entire specimen is submitted in one cassette after short decalcification. / SJ:rg 09/03/20 TC:5 [facility]: [id number], [id number]
== END | disposition home or self-care (01) ==
LOC: LABSPEC 09-03 07:59
PROVIDERS: Referring Provider Anesthesiology Pain Medicine; Visit Provider Anesthesiology Pain Medicine
DX: M84.48XA Pathological fracture, other site, initial encounter for fracture (principal)
CPT/HCPCS: 88304; 88307; 88311

== ENCOUNTER → 2020-09-11 14:36 | Outpatient (CLI) | payer OTHER, SELFPAY ==
[2020-09-11 13:07] VITALS: BMI 30.8
== END ==
PROVIDERS: Referring Provider Internal Medicine Medical Oncology; Visit Provider Internal Medicine Medical Oncology
DX: M79.89 Other specified soft tissue disorders (principal)
CPT/HCPCS: 93971

== ENCOUNTER → 2020-09-18 07:43 | Outpatient (CLI) | payer OTHER, SELFPAY ==
[2020-08-04 14:07] VITALS: BMI 31.5
[2020-09-11 13:07] VITALS: BMI 30.8
[2020-09-18] VITALS (11 sets, daily range): BP systolic 97–158; BP diastolic 67–113; PULSE 92–147; RESP 11–29; TEMP 36.6; O2SAT 98–100; BMI 30.7
--- NOTE | 2020-09-18 | ASPIGT_PTH ---
PATIENT: CHRIS YORK LOC: CT U#:[id number] AGE/SX: 69/F ROOM: RE09/18/[address]: Dr. Hector Hess MD : 1955 BED: DIS: SPEC #: [id number] RECD: 09/18/20 10:04 STATUS: YOLANDA SCARLETT #: [id number] HILARIA: 09/18/20 00:[address]: Hector Hess DEPT: SURGICAL PATHOLOGY RECD BY: Mariama Acosta ENTERED: 09/18/20 10:05 SP TYPE: ASP RAD OT DR: No Primary Care Phys Tissues: Vertebra, NOS Procedures: FNA Specimen Adequacy Special Stain Group II Surgery Specimen Level IV Imprint (control) HEADER OPERATION: CT-guided vertebral mass biopsy PRE-OP DIAGNOSIS: L3 vertebral mass TISSUE SUBMITTED: Right L3 vertebral mass 18-gauge core x3 MICROSCOPIC DIAGNOSIS Right L3 vertebral mass, CT-guided core biopsy: Metastatic non-small cell carcinoma, favor adenocarcinoma. See comment. SJ:raul 09/19/2020 COMMENT The specimen is evaluated at the time of biopsy by Dr. Singh. Immediate Evaluation = Malignant cells present. Immunohistochemistry ([id number]) supports the above diagnosis and IHC profile is compatible with clinical impression of endometrial primary. As per EMR, patient has history of metastatic endometrial adenocarcinoma. Please make reference to previous specimen ([id number]) L3, kyphoplasty with diagnosis of a piece of bone with reactive changes, clinically fracture L3. Case has been reviewed in consultation with Dr. Rodriges who concurs with the above diagnosis. IDC:AM MICROSCOPIC DESCRIPTION Slides are reviewed. GROSS DESCRIPTION Received in fixative is one container labeled with the patient's name and designated L3 vertebral mass, CT-guided core biopsy. The specimen consists of multiple irregular fragments of morgan soft tissue that in aggregate measure 1.5 x 0.1 x <0.1 cm. The specimen is totally submitted in one cassette. Four touch imprints are prepared at the time of core biopsy. / FRANK:raul 09/18/20 TC:0 CPT: 02596, 46179
--- NOTE | 2020-09-18 | IMM_PTH ---
PATIENT: CHRIS YORK LOC: CT U#:[id number] AGE/SX: 69/F ROOM: RE09/18/[address]: Dr. Hector Hess MD : 1955 BED: DIS: SPEC #: [id number] RECD: 09/18/20 14:20 STATUS: YOLANDA RECeci #: [id number] HILARIA: 09/18/20 00:[address]: Hector Hess DEPT: IMMUNOHISTOCHEMISTRY RECD BY: Laurel Rodriges ENTERED: 09/18/20 14:23 SP TYPE: IMMUNO OTHR DR: No Primary Care Phys Tissues: Vertebra, NOS Procedures: RCC (add) MSH2 (add) MLH-1 (add) MSH6 (add) Anti-PMS2 (add) NAPSIN A (add) CK20 (add) CK5-6 (add) CK7 (add) CK8 (add) HEP PAR (add) HER2 JENIFFER (add) KI-67 (add) P53 (add) MO (add) TTF1 (add) Vimentin (add) Pankeratin (add) P40 (add) ER (initial) PHYSICIAN & INSTITUTION [place] [id number] SPECIMEN INFORMATION: Tissue Source: CT-guided vertebral mass biopsy Clinical Info: L3 vertebral mass Specimen Number: [id number] CPT code: 35037, 78177 x19 METHODOLOGY: Deparaffinized sections of prefer/formalin-fixed tissue or PAP/DQ stained slides are incubated with monoclonal/polyclonal antibodies/oligonucleotide probes. Localization is made via biotin free immunoperoxidase method. Appropriate controls are performed and reacted as expected. Results on target cell population are indicated in the following table: RESULTS: ANTIBODY / CLONE RESULT ER (6F11) positive MO (1E2) positive, rare cells AE1-3 (AE1/AE3/PCK26) positive CK7 (OV-TL12/30) positive CK8 (66kjlpN37) positive CK20 (KS20.8) negative TTF-1 (8G7G3/1) negative Napsin A (Rabbit Polyclonal) negative HepPar (OCh1E5) negative RCC (PN-15) negative CK5-6 (D5 & 1684) positive, rare cells P40 (BC28) negative Ki-67 (30-9) positive, high P53 (DO-7) positive, a few cells MLH-1 (M1) positive MSH2 (25D12) positive MSH6 (44) positive PMS2 (UNY2291) positive Her-2neu (CB11) negative Vimentin (V9) positive, focal These tests were developed and their performance characteristics determined by [facility]. They may not have been cleared or approved by the U.[place]. Food and Drug Administration. The FDA has determined that such clearance or approval is not necessary. The above immunohistochemical/dualISH markers are ordered and reviewed by the Pathologist. INTERPRETATION: Vertebral mass, CT-guided biopsy: Metastatic non-small cell carcinoma, favor adenocarcinoma. Result of Microsatellite Instability Study: Negative (no loss of mismatch protein; no microsatellite instability detected). See comment. SJ:raul 09/19/2020 Comment: IHC profile is compatible with clinical impression of endometrial primary. Case has been reviewed in consultation with Dr. Rodriges who concurs with the above diagnosis. IDC:AM
--- NOTE | 2020-09-18 07:55 | CT_ITS ---
PROCEDURE: CT GUIDED biopsy of the right retroperitoneal mass. DATE: 09/18/2020 INDICATION: Female, 65 years old. Right retroperitoneal/paravertebral mass with destruction of the L3 vertebrae. PHYSICIAN: Marino Agudelo M.D. RADIATION DOSAGE (If Supplied By Facility): CTDIvol = ( 23 ) mGy, DLP = ( 472.46 ) mGycm. Individualized dose optimization techniques were utilized. PROCEDURE: The risks, benefits, and alternatives to the procedure were explained to the patient. The specific risk of hemorrhage requiring further treatment or intervention was detailed and accepted. Follow-up instructions were discussed with the patient as well. Written informed consent was obtained. The patient was brought into the CT suite and placed in the prone position. . An appropriate entry site was identified. The overlying skin was prepped and draped in the usual sterile fashion. 1% lidocaine was administered subcutaneously for local anesthesia. Conscious sedation was performed. The patient received 2 mg of VERSED and 75 mcg of FENTANYL intravenously. Conscious sedation was started at 9:26 AM and terminated at 946 the patient was independently monitored by the department nurse. Under CT guidance, a total of 3 passes were performed utilizing an 18-gauge core biopsy needle system. The specimens were then placed in appropriate fluid and transported to the laboratory for analysis. Hemostasis was obtained. The patient tolerated the procedure well without immediate complications. CT/Biopsy/Inj or Needle Placement IMPRESSION: Successful CT guided biopsy of the left paraspinal/retroperitoneal mass, as described above. The conscious sedation protocol was followed. Electronically Signed: Marino Agudelo MD at 10:37 EDT , Service support ,
[2020-09-18 07:57] LABS: Hematocrit 53.2 % (37-47); Hemoglobin 16.7 g/dL (12.0-15.0); Mean Corp Hgb Conc 31.4 g/dL (32-36); Mean Corpuscular Hgb 28.5 pg (27.0-32.0); Mean Corpuscular Volume 90.8 fL (81-99); Mean Platelet Vol. 10.7 fl (6.2-12.0); POSITIVE COUNT YES; POSITIVE MORPHOLOGY YES; Platelet Count 228 K/mm3 (150-450); RBC Distribution Width SD 46.3 fl (35.1-43.9); Red Blood Count 5.86 M/mm3 (4.2-5.4)
[2020-09-18 08:05] LABS: Differential Indicated MANUAL DIFF
[2020-09-18 08:32] LABS: Lymphocyte 24 % (19-41); Monocyte 9 % (0-10); Myelocyte 2 % (0-0); Neutrophil-Segmented 63 % (47-70); Platelet Estimate ADEQUATE (ADEQ); Promyelocyte 2 % (0-0); Red Cell Morphology NORM C+C NORMAL (NORM C&C); Total Cells Counted 100 (MANUAL DIFF)
[2020-09-18 08:33] LABS: Absolute Neutrophil Count 7.6 X10^3/uL (2.0-7.7)
[2020-09-18 08:40] LABS: Prothrombin Time (Protime)PT. 12.9 SECONDS (11.7-14.9)
[2020-09-18 08:41] LABS: Partial Thromboplast Time 23.4 Seconds (24.1-36.2)
[2020-09-18] MEDS: Midazolam 2 MG/2 ML Syringe IV ×2 (09:26→09:37)
[2020-09-18] MEDS: fentaNYL 100 MCG/2 ML Ampul IV ×3 (09:28→09:46)
[2020-09-19 09:28] LABS: Cancer Antigen 125 74.2 U/mL (0.0-38.1)
[2020-09-19 12:41] LABS: Pathologist Review Reviewed
== END ==
PROVIDERS: Referring Provider Internal Medicine Medical Oncology; Visit Provider Internal Medicine Medical Oncology
DX: C79.51 Secondary malignant neoplasm of bone (principal); C54.1 Malignant neoplasm of endometrium
CPT/HCPCS: 62267; 36415; 77012; 85025; 85610; 85730; 86304; 88172; 88305; 88313; 88341; 88342; 99155; 99156; J7040; A4216

== ENCOUNTER 2020-09-18 10:58 | Observation (INO) | payer OTHER, SELFPAY ==
[2020-09-18] VITALS (9 sets, daily range): BP systolic 84–133; BP diastolic 52–87; PULSE 62–123; RESP 15–20; TEMP 36.4–36.9; O2SAT 98–100; BMI 30.7; BMI 31.0
--- NOTE | 2020-09-18 11:20 | RAD_ITS ---
STUDY: X-RAY CHEST REASON FOR EXAM: Female, 65 years old. Chest pain . Atrial fibrillation. TECHNIQUE: Single AP portable view of the chest. COMPARISON: Comparison is made with prior examination dated 03/11/2020. FINDINGS: EKG electrode are seen. Hyperinflation. The lungs are clear. There is no demonstrated pleural abnormality. Normal size heart. Normal mediastinum and fahad. Normal visualized pulmonary arteries. There is atherosclerotic tortuosity of the aortic arch and descending thoracic aorta. There are diffuse degenerative changes of the visualized thoracic spine. Normal visualized ribs, clavicles, and shoulders. There is no demonstrated abnormality of the visualized soft tissue structures of the upper abdomen. RAD/Chest 1 View (Portable) IMPRESSION: No acute abnormality is seen. Electronically Signed: Marino Agudelo MD at 12:11 EDT , Service support ,
--- NOTE | 2020-09-18 11:20 | EKG12_ITS ---
Test Reason : Blood Pressure : / mmHG Vent. Rate : 097 BPM Atrial Rate : 416 BPM P-R Int : 000 ms QRS Dur : 074 ms QT Int : 336 ms P-R-T Axes : 000 035 044 degrees QTc Int : 426 ms Atrial fibrillation Abnormal ECG Confirmed by DEANGELO PICHARDO, RIYA ([id number]), commercial production editor TATI MONK ([id number]) on 09/19/2020 8:25:36 AM Referred By: ROMERO Confirmed By:ERICA BRIGHT MD
--- NOTE | 2020-09-18 11:20 | ED.VISSUMM ---
- ER Visit Summary Date of Service: 09/18/20 Chief Complaint: A. fib History of Present Illness: The patient is a 65 F of endometrial cancer for which she underwent a total hysterectomy. About 1 year ago. At that time they noticed that she had A. fib. The physician relations representative saw her in [place] wanted to wait 6 to 12 months to see if she had any recurrent symptoms and she was not otherwise treated. She has been doing well. Today she came in for a lumbar biopsy for a possible mass on her spine and they noted that she was in A. fib. Recently she has been on Eliquis due to a DVT in her right leg. The Eliquis was held due to the biopsy today. She denies any chest pain or shortness of breath. She has no known history of thyroid disease. She has had no prior cardiac history. Physical Examination: 65-year-old female no acute distress vital signs stable afebrile. Pulse ox 9% room air no signs hypoxia. H EENT exam unremarkable. Neck nontender no lymphadenopathy. Lungs clear to auscultation bilaterally. Heart irregularly irregular rate in 90s. No murmur. Chest were nontender. Abdomen soft nontender. Moving all 4 extremities. She does have edema in her right leg and calf consistent with her DVT that she has known in her right leg. Dorsi plantarflexion intact. Neurologically she is awake and alert with no focal motor deficits. Test Results: [] Emergency Department Course and Treatment: 65-year-old with known endometrial cancer for which she underwent a hysterectomy. Currently being worked up for possible lumbar metastases. Today was noted to be in A. fib. She had a history of prior about 1 year ago which was to be further evaluated. She will undergo a cardiac work-up. Treatment Plan: [] Disposition: [] Impression: Recurrent atrial fibrillation History of endometrial cancer rule out lumbar metastases This note was generated with [employer]omer[employer] dictation software. It may contain incorrect words, spelling, and punctuation that were not noted in review of the chart prior to signing ED Disposition - Plan for ED Patient: Referrals: Hector Hess MD [Primary Care Provider] -
[2020-09-18 12:46] LABS: Prothrombin Time (Protime)PT. 12.6 SECONDS (11.7-14.9)
[2020-09-18 12:47] LABS: Partial Thromboplast Time 21.4 Seconds (24.1-36.2)
[2020-09-18] MEDS: Ondansetron 4 MG/2 ML Vial IM (13:12)
[2020-09-18] MEDS: morphine 10 MG/ML Syringe IM (13:12)
[2020-09-18 13:39] LABS: Anion Gap 4 (5-15); BUN 16 mg/dL (7-18); BUN/Creat Ratio 21.6 RATIO (10-20); Calcium,Total 8.9 mg/dL (8.5-10.1); Chloride 104 mmol/L (98-107); Creatinine, Serum 0.74 mg/dL (0.55-1.02); EST Glomerular Filtration Rate 84 mL/min (>60); Est Glom Filt Rate - Afr Amer 101 mL/min (>60); Glucose 99 mg/dL (74-106); Potassium 4.7 mmol/L (3.5-5.1); Sodium Level 140 mmol/L (136-145); Thyroid Stim Hormone (TSH) 1.12 uIU/mL (0.358-3.74)
--- NOTE | 2020-09-18 14:09 | HP.PCM_ITS ---
History of Present Illness Date of Admission: 09/18/20 Chief Complaint: afib The patient is a 65 year old F with a PMH as outlined who was admitted with a complaint of afib. Patient had total hysterectomy about a year ago for endometrial cancer. She was noted to be in afib then. She says se was told by the courtesy van driver who saw her then told her he wanted to wait to see if she would have any recurrent symptoms before being treated. She came in for lumbar spine biopsy for a possible metastatic mass on her spine. She was noted to be in afib. She had being on eliquis due to a DVT in her RLE, but this was held prior to her coming in for hte lumbar biopsy. She has no previous history of heart disease. She was sent to the ED after she had the procedure on account of her A. fib. In the ED vitals were stable she was in A. fib her heart rate was 96. Respiratory rate is 15 and she was saturating at 98% on room air. Chemistry was essentially unremarkable. Initial troponin was negative and TSH was 1.12. CBC was not done. Chest x-ray showed no acute cardiopulmonary process. 1. She is being admitted to be managed for recurrent A. fib. 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 Q72H 08/21/20 Gabapentin [Neurontin] 300 mg PO Q8H #90 capsule 08/30/20 Apixaban [Eliquis] 5 mg PO BID 30 Days #88 tablet 09/11/20 Diclofenac Sodium [Voltaren] 1 inch TOPICAL Q6H 09/18/20 Hydromorphone HCl [Dilaudid] 4 mg PO Q6H 09/18/20 Sennosides/Docusate Sodium 1 tablet PO BID 09/18/20 [Senokot-S Tablet] Surgical History: Surgical History (Last Reviewed 09/11/20 @ 13:06 by Kim Bowling) History of appendectomy Z90.49 History of tonsillectomy Z90.89 Lives: With Family Smoking Status: Never smoker Alcohol: None Drugs: None - *Family History Maternal Family History: Family History (Last Reviewed 09/11/20 @ 13:06 by Kim Bowling) Brother Lymphoma Grandmother Breast cancer Stomach cancer Grandfather Carcinoma of heart Mother Breast cancer Other Liver cancer Review of Systems Constitutional: Denies: Anorexia, Chills, Fever, Malaise, Weakness, Weight Change HEENT: Denies: Head Aches, Sinus Congestion, Sinus Drainage Cardiovascular: Denies: Chest Pain, Chest Pressure, Chest Tightness, Heaviness, Light Headedness, Orthopnea, Palpitations, Syncope Respiratory: Denies: Cough, Shortness of Breath, Shortness of breath at rest, Sputum production Gastrointestinal: Denies: Abdominal Pain, Nausea, Vomiting Genitourinary: Denies: Dysuria Musculoskeletal: Denies: Joint Pain, Joint Tenderness Skin: Denies: Rash, Wounds Neurological: Denies: Numbness, Tingling, Focal weakness Psychiatric: Denies: Anxiety, Depression, Homicidal Ideations, Suicidal Ideations Hematologic/ Lymphatic: Denies: Easy Bruising, Easy Bleeding VTE Information - Inpt Only VTE Present on Admission: No VTE Pharm Prophylaxis ordered?: Yes - Physical Exam Vitals/I&O's: Vital Signs Temp Pulse Resp BP Pulse Ox 97.9 F 96 15 133/87 H 98 09/18/20 10:59 09/18/20 10:59 09/18/20 10:59 09/18/20 10:59 09/18/20 11:24 Oxygen Delivery Method Room Air Weight: 190 lb Body Mass Index (BMI) 30.7 General: Alert, Oriented x3, Cooperative, No apparent distress HEENT: Atraumatic, PERRLA, EOMI, Normocephalic Oral: Dry Mucosa Neck: Supple, No JVD, Negative Carotid Bruits Lungs: Clear to auscultation, Normal air movement, No rhonchi, No wheeze, No rales Cardiovascular: Normal S1, Normal S2, Irregular Rate - afib, rate controlled Abdomen: Bowel Sounds Present, Soft, Non Tender Extremities: No clubbing, No cyanosis, No edema, Capillary Refill Less than 3 Seconds Skin: No rashes, No breakdown Musculoskeletal: No Tenderness to Palpation of Joints or Extremities Lymphatic: No Cervical, Supraclavicular, or Inguinal Adenopathy Neurological: Cranial nerves II-XII grossly intact, Neuro grossly intact, Motor Exam 5/5 strength throughout Psych/Mental Status: Normal Affect, Appropriate, Alert and oriented to time, place, person, mood and affect Laboratory Results 09/18/20 07:47: Sodium 140, Potassium 4.7, Chloride 104, Carbon Dioxide 32.0, Anion Gap 4 L, BUN 16, Creatinine 0.74, Estim Creat Clear Calc 71.90, Est GFR ( MDRD) Af Amer 101, Est GFR (MDRD) Non-Af 84, BUN/Creatinine Ratio 21.6 H, Glucose 99, Calcium 8.9, Troponin I < 0.015, TSH 1.12 09/18/20 12:25: PT 12.6, INR 1.0, APTT 21.4 L Diagnostic Data Chest X-Ray 09/18/20 11:20 IMPRESSION: No acute abnormality is seen. Electronically Signed: Marino Agudelo MD at 12:11 EDT , Service support , Assessment/Plan All Active Problems (Last Reviewed 09/11/20 @ 13:06 by Kim Bowling) Swelling of right lower extremity (Acute) Pathologic fracture (Acute) Back pain (Acute) Lumbar radiculopathy, acute (Acute) Lumbar radiculopathy, acute (Acute) #Afib with RVR * admit to PCU with telemetry * HR was in the 130s at the time I was reviewing her; however it came down to the 90s-100s after she received IV morphine * get 2D echo. * TSH is within normal limits; was noted to be in afib a year ago when she had hysterectomy. Food Court Team Member told her she would be monitored to see if it recurred, and she wasn't put on any meds * start on PO metoprolol * hold off on eliquis for now * consult cardiology * #History of endometrial cancer * s/p hysterectomy. * had biopsy of lumbar spine today due to concerns for metastasis. says she has been told the lumbar spine mass which she says is completely enclosing L3 is likely a completely new cancer; she had a biopsy done by Dr Sotelo, pathology of which was inconclusive. had new biopsy done today. * follows with Dr Hess; says that she has refused chemotherapy, and her goal is to maintain her quality of life * DVT prophylaxis: SCDs Code status: DNRCCA Do not intubate, do not transfuse * I discussed CODE STATUS extensively with patient and her . Patient stated that she is in the 11th member of her family to suffer from cancer and she knows she is going to from cancer. She says she has refused to take any treatment for the cancer problem the surgery she had because she knows she is going to from it. She therefore wishes to be DNR CCA and does not want to be intubated or transfused or have CPR. * * Inpatient E&M: 61033 Init Hosp L3 Procedures: 46594 Advncd Care Plan 30 Min
--- NOTE | 2020-09-18 14:11 | NURSING ---
DR JENAE JASSO
--- NOTE | 2020-09-18 14:25 | NURSING ---
PCU OBS KORAM AFIB, RT LEG DVT
--- NOTE | 2020-09-18 15:07 | ECHOCS_ITS ---
Reason For Study: AFIB Procedure This was a 2D Doppler, Color Flow transthoracic echocardiogram. The study was technically difficult. Contrast injection was performed. Exam performed portable in patient room. Left Ventricle Normal LV size. The estimated ejection fraction is 60 %. No evidence for diastolic dysfunction. No regional wall motion abnormalities noted. Right Ventricle Normal RV size. Normal systolic function. Atria The left atrium is mildly enlarged. Normal right atrium. No doppler evidence for ASD. Mitral Valve There is no mitral valve stenosis. Trivial mitral valve insufficiency. Tricuspid Valve There is no tricuspid stenosis. Trivial tricuspid valve insufficiency. Pulmonary artery systolic pressure is 25 mmHg. Aortic Valve Trisinus/trileaflet aortic valve. There is no aortic stenosis. No aortic valve insufficiency. Pulmonic Valve There is no pulmonic valvular stenosis. No pulmonic valve insufficiency. Great Vessels Normal aortic root. Pericardium/Pleural No pericardial effusion. Medication Diluted definity 2ml given slow IV push to enhance endocardial definition. MMode/2D Measurements & Calculations LVIDd: 4.0 cm IVSd: 1.4 cm LA dimension: 3.3 cm LVIDs: 2.3 cm LVPWd: 1.4 cm FS: 43.2 % LAV(MOD-bp): 58.4 ml LA A4 area: 20.8 cm2 RA A4 area: 14.4 cm2 LAV(MOD-bp) Indexed: 29.8 ml/m2 LAV(MOD-sp2): 55.8 ml LAV(MOD-sp4): 55.2 ml Doppler Measurements & Calculations MV E max efraín: 86.7 cm/sec Ao V2 max: 87.7 cm/sec AI max efraín: 399.1 cm/sec Ao max P.1 mmHg AI max P.7 mmHg AI dec slope: 195.2 cm/sec2 AI P1/2t: 598.7 msec LV V1 max: 81.5 cm/sec MR max efraín: 461.3 cm/sec PA V2 max: 69.6 cm/sec LV V1 max P.7 mmHg MR max P.1 mmHg MR mean efraín: 359.7 cm/sec MR mean P.6 mmHg MR VTI: 136.2 cm TR max efraín: 222.6 cm/sec TR max P.8 mmHg ECHO/Echo Complete W/ Contrast Interpretation Summary The estimated ejection fraction is 60 %. No evidence for diastolic dysfunction. The left atrium is mildly enlarged. Trivial mitral valve insufficiency. The study was technically difficult. Contrast injection was performed. Ordering Physician: Sherrill Maradiaga Performed By: Jared Gross RCS
[2020-09-18 16:04] LABS: Hematocrit 48.2 % (37-47); Hemoglobin 16.2 g/dL (12.0-15.0); Mean Corp Hgb Conc 33.6 g/dL (32-36); Mean Corpuscular Hgb 28.9 pg (27.0-32.0); Mean Corpuscular Volume 85.9 fL (81-99); Mean Platelet Vol. 11.4 fl (6.2-12.0); POSITIVE COUNT YES; POSITIVE MORPHOLOGY YES; Platelet Count 121 K/mm3 (150-450); RBC Distribution Width SD 43.2 fl (35.1-43.9); Red Blood Count 5.61 M/mm3 (4.2-5.4); White Blood Count 11.2 K/mm3 (4.4-11.0)
[2020-09-18] MEDS: Metoprolol Tartrate 25 MG Tablet PO ×2 (16:18→22:25)
[2020-09-18] MEDS: Gabapentin 300 MG Capsule PO ×2 (16:19→22:25)
[2020-09-18] MEDS: HYDROmorphone 2 MG TABLET 4 MG PO ×2 (16:19→22:24)
[2020-09-18 16:47] LABS: Lymphocyte 26 % (19-41); Metamyelocyte 2 % (0-1); Monocyte 8 % (0-10); Myelocyte 1 % (0-0); Neutrophil-Band 2 % (0-5); Neutrophil-Segmented 61 % (47-70)
[2020-09-18 16:50] LABS: Differential Indicated MANUAL DIFF
--- NOTE | 2020-09-18 16:54 | CHAPLAIN ---
Type of Pastoral Visit _x__ Initial Visit ___ Follow-up Visit ___ On-call Visit ___ General Patient Visit ___ Spiritual Assessment ___ Family Conference ___ Bereavement ___ Rapid Response ___ Code Blue ___ Other (describe below) Pastoral Care Referral From _x__ Patient ___ Family ___ Nurse ___ Physician ___ Casino Supervisor ___ Curtain Fitter ___ Other (describe below) Sacrament/Intervention _x__ Active listening ___ Anointing ___ Oriental Orthodox ___ Bereavement ___ Communion _x__ Gin exploration ___ _x__ Life review _x__ Prayer ___ Reconciliation ___ Sacrament of Sick _x__ Supportive presence ___ Wedding ___ Other (describe below) Pastoral Comments patient and spouse in room; pt is very talkative and gives some life history and perspective; pt states that at some point I will need hospice and notes that she wants to be able to continue receiving support of the edge glue machine tender for spiritual care
[2020-09-18 16:59] LABS: Absolute Lymphocyte Count 2.92 X10^3/uL (0.83-4.51); Absolute Neutrophil Count 7.1 X10^3/uL (2.0-7.7); Anisocytosis RARE; Platelet Estimate SLT DEC (ADEQ); Red Cell Morphology N CHROM NORMAL (NORM C&C)
[2020-09-18 17:00] LABS: Ovalocyte RARE
[2020-09-18] MEDS: 0.9% Saline Lock 10 ML Syringe IV (17:20)
[2020-09-18] MEDS: dilTIAZem 25 MG/5 ML Vial IV BOLUS (17:20)
[2020-09-18] MEDS: Senna/Docusate Sodium 1 Tablet PO (22:25)
[2020-09-19] VITALS (15 sets, daily range): BP systolic 94–128; BP diastolic 66–83; PULSE 80–107; RESP 16–18; TEMP 35.8–37.1; O2SAT 96–100
[2020-09-19] MEDS: HYDROmorphone 2 MG TABLET 4 MG PO ×4 (04:32→22:21)
[2020-09-19 05:35] LABS: Hematocrit 47.6 % (37-47); Hemoglobin 14.4 g/dL (12.0-15.0); Mean Corp Hgb Conc 30.3 g/dL (32-36); Mean Corpuscular Volume 92.6 fL (81-99); Mean Platelet Vol. 10.7 fl (6.2-12.0); POSITIVE COUNT YES; POSITIVE MORPHOLOGY YES; Platelet Count 187 K/mm3 (150-450); RBC Distribution Width CV 14.5 % (11.6-14.6); RBC Distribution Width SD 48.8 fl (35.1-43.9); Red Blood Count 5.14 M/mm3 (4.2-5.4); White Blood Count 9.2 K/mm3 (4.4-11.0)
[2020-09-19 05:36] LABS: Differential Indicated MANUAL DIFF
[2020-09-19 05:51] LABS: Anion Gap 3 (5-15); BUN 20 mg/dL (7-18); BUN/Creat Ratio 21.5 RATIO (10-20); Calcium,Total 8.6 mg/dL (8.5-10.1); Chloride 107 mmol/L (98-107); Creatinine, Serum 0.93 mg/dL (0.55-1.02); EST Glomerular Filtration Rate 64 mL/min (>60); Est Glom Filt Rate - Afr Amer 78 mL/min (>60); Estimated Creatinine Clearance 57.21 ml/min; Glucose 79 mg/dL (74-106); Magnesium 2.5 mg/dL (1.6-2.6); Sodium Level 139 mmol/L (136-145)
[2020-09-19 06:03] LABS: Lymphocyte 31 % (19-41); Metamyelocyte 3 % (0-1); Monocyte 8 % (0-10); Neutrophil-Band 1 % (0-5); Neutrophil-Segmented 57 % (47-70); Total Cells Counted 100 (MANUAL DIFF)
[2020-09-19 06:04] LABS: Absolute Neutrophil Count 5.3 X10^3/uL (2.0-7.7); Platelet Estimate ADEQUATE (ADEQ); Red Cell Morphology NORM C+C NORMAL (NORM C&C)
[2020-09-19] MEDS: Gabapentin 300 MG Capsule PO ×3 (06:43→22:21)
[2020-09-19] MEDS: Metoprolol Tartrate 25 MG Tablet PO ×3 (10:20→16:31)
[2020-09-19] MEDS: Senna/Docusate Sodium 1 Tablet PO ×2 (10:20→22:21)
--- NOTE | 2020-09-19 11:53 | CASEMGMT ---
RABIA noted after reviewing patient's chart that she was discharged from [facility] on 08-29-20 with [facility]. RABIA called Hospice and spoke with Obi. He said patient did sign Hospice papers on the 30 of August, but then she did revoke it on the to pursue treatment. Giuliana WILLIAMSON
[2020-09-19 12:42] LABS: Pathologist Review Reviewed
[2020-09-19 12:45] LABS: Pathologist Review Reviewed
--- NOTE | 2020-09-19 17:48 | PCM.PROGNOTE ---
Subjective: Patient was seen and examined today, she remains in atrial fibrillation at this time with rates in the 110s and 120s at times. Patient is asymptomatic however, I have increased her beta-karlie today and will reevaluate her tomorrow, I talked with her who was in the room today and told her that I did not think she should go home at this point with her heart rate under poor control at this time. Patient's echocardiogram showed no abnormalities, she has a normal EF. - Physical Exam Vitals/I&O's: Vital Signs Temp Pulse Resp BP Pulse Ox 97.6 F L 100 18 97/70 100 09/19/20 15:50 09/19/20 16:31 09/19/20 15:50 09/19/20 16:31 09/19/20 15:50 Oxygen Delivery Method Room Air Weight: 87.2 kg Body Mass Index (BMI) 31.0 Intake and Output for Last 24 Hours 09/17/20 09/18/20 09/19/20 23:59 23:59 23:59 Intake Total 1220 / 1220 720 / 720 Balance 1220 / 1220 720 / 720 General: Alert, Oriented x3, Cooperative, No apparent distress, Well developed, Well nourished HEENT: Atraumatic, PERRLA, EOMI, Normocephalic Oral: Moist Mucosa Neck: Supple, No JVD, Trachea Midline, Thyroid Normal Size and Texture Lungs: Clear to auscultation, Normal air movement, No rhonchi, No wheeze, No rales Cardiovascular: No murmurs, PMI Normal, Irregular Rate, No rub noted Abdomen: Bowel Sounds Present, Soft, Non Tender, Non-Distended, No Hepato-splenomegaly Extremities: No clubbing, No cyanosis, No edema, Capillary Refill Less than 3 Seconds Skin: No rashes, No breakdown Musculoskeletal: No Tenderness to Palpation of Joints or Extremities Neurological: Cranial nerves II-XII grossly intact, Neuro grossly intact, Sensory exam intact to light touch and pain Psych/Mental Status: Normal Affect, Appropriate, Alert and oriented to time, place, person, mood and affect Laboratory Results 09/18/20 15:31: Diff Path Review Reviewed 09/18/20 18:18: Troponin I 0.017 09/18/20 20:59: Troponin I 0.015 09/19/20 05:00: WBC 9.2, RBC 5.14, Hgb 14.4, Hct 47.6 H, MCV 92.6 D, MCH 28.0, MCHC 30.3 L D, RDW Std Deviation 48.8 H, RDW Coeff of Tahir 14.5, Plt Count 187, MPV 10.7, Neut % (Auto) Not Reportable, Absolute Neuts (auto) 5.3, Absolute Lymphs (auto) 2.90, Total Counted 100, Neutrophils % (Manual) 57, Band Neutrophils % 1, Lymphocytes % (Manual) 31, Monocytes % (Manual) 8, Metamyelocytes % 3 H, Diff Path Review Reviewed, Platelet Estimate ADEQUATE, RBC Morphology NORM C+C 09/19/20 05:00: Sodium 139, Potassium 5.0, Chloride 107, Carbon Dioxide 29.0, Anion Gap 3 L, BUN 20 H, Creatinine 0.93, Estim Creat Clear Calc 57.21, Est GFR (MDRD) Af Amer 78, Est GFR (MDRD) Non-Af 64, BUN/Creatinine Ratio 21.5 H, Glucose 79, Calcium 8.6, Magnesium 2.5 Current Medications Acetaminophen (Acetaminophen 325 Mg Tablet) 650 mg PO Q6H PRN PRN PRN Reason: Pain Score 1-10/Temp > 100.7 F Diclofenac Sodium (Diclofenac 1% Gel 100gm Tube) 1 applic TOPICAL Q6 [facility] Last Admin: 09/19/20 17:34 Dose: 1 applic Documented by: Fentanyl (Fentanyl 100 Mcg Patch) 100 mcg TD Q72H [facility] Gabapentin (Gabapentin 300 Mg Capsule) 300 mg PO Q8H [facility] Last Admin: 09/19/20 16:30 Dose: 300 mg Documented by: Hydromorphone HCl (Hydromorphone 2 Mg Tablet) 4 mg PO Q6H [facility] Last Admin: 09/19/20 16:30 Dose: 4 mg Documented by: Metoprolol Tartrate (Metoprolol Tartrate 100 Mg Tablet) 100 mg PO BID [facility] Nitroglycerin (Nitroglycerin (Inpatient Use) 0.4 Mg Tab.Subl) 0.4 mg SL Q5M PRN PRN Reason: CARDIAC/CHEST PAIN Ondansetron HCl (Ondansetron 4 Mg/2 Ml Vial) 4 mg IV Q8H PRN PRN PRN Reason: NAUSEA/VOMITING Senna/Docusate Sodium (Senna/Docusate Sodium 1 Tablet) 1 tablet PO BID [facility] Last Admin: 09/19/20 10:20 Dose: 1 tablet Documented by: Sodium Chloride (0.9% Saline Lock 10 Ml Syringe) 10 - 40 ml IV UD PRN PRN Reason: SALINE FLUSH Last Admin: 09/18/20 17:20 Dose: 10 ml Documented by: Medical Necessity - Tobacco Use Smoking Status: Never smoker Assessment/Plan All Active Problems (Last Reviewed 09/11/20 @ 13:06 by Kim Bowling) Swelling of right lower extremity (Acute) #1 atrial fibrillation with rapid ventricular response-patient will remain on Lopressor, I have increased the dose today, she will be monitored on telemetry, if patient does not respond to this medication it may be necessary to order amiodarone. 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
[2020-09-19] MEDS: Metoprolol Tartrate 100 MG Tablet PO (22:21)
[2020-09-20] VITALS (16 sets, daily range): BP systolic 91–108; BP diastolic 60–79; PULSE 85–155; RESP 16–18; TEMP 36.3–36.7; O2SAT 97–100
[2020-09-20] MEDS: HYDROmorphone 2 MG TABLET 4 MG PO ×4 (04:37→22:37)
[2020-09-20] MEDS: Gabapentin 300 MG Capsule PO ×3 (06:24→22:36)
[2020-09-20] MEDS: Amiodarone 200 MG Tablet 400 MG PO ×2 (09:01→21:42)
[2020-09-20] MEDS: Senna/Docusate Sodium 1 Tablet PO ×2 (09:01→21:42)
[2020-09-20] MEDS: Metoprolol Tartrate 100 MG Tablet PO ×2 (09:04→21:42)
--- NOTE | 2020-09-20 15:32 | PCM.PROGNOTE ---
Subjective: Patient was seen and examined today, heart rate is still not under good control I have added amiodarone today. I talked with her about perhaps staying until Tuesday if her rate was not well controlled. - Physical Exam Vitals/I&O's: Vital Signs Temp Pulse Resp BP Pulse Ox 98.1 F 86 18 91/60 100 09/20/20 15:22 09/20/20 15:22 09/20/20 15:22 09/20/20 15:22 09/20/20 15:22 Oxygen Delivery Method Room Air Weight: 87.2 kg Body Mass Index (BMI) 31.0 Intake and Output for Last 24 Hours 09/18/20 09/19/20 09/20/20 23:59 23:59 23:59 Intake Total 1220 / 1220 720 / 1080 760 / 760 Balance 1220 / 1220 720 / 1080 760 / 760 General: Alert, Oriented x3, Cooperative, No apparent distress, Well developed, Well nourished HEENT: Atraumatic, PERRLA, EOMI, Normocephalic Oral: Moist Mucosa Neck: Supple, No JVD, Negative Carotid Bruits, No Nuchal Rigidity, Trachea Midline, Thyroid Normal Size and Texture Lungs: Clear to auscultation, Normal air movement, No rhonchi, No wheeze, No rales Cardiovascular: No murmurs, PMI Normal, Irregular Rate, No rub noted Abdomen: Bowel Sounds Present, Soft, Non Tender, Non-Distended Extremities: No clubbing, No cyanosis, No edema, Capillary Refill Less than 3 Seconds Skin: No rashes, No breakdown Musculoskeletal: No Tenderness to Palpation of Joints or Extremities Neurological: Cranial nerves II-XII grossly intact, Neuro grossly intact, Sensory exam intact to light touch and pain Psych/Mental Status: Normal Affect, Appropriate, Alert and oriented to time, place, person, mood and affect Current Medications Acetaminophen (Acetaminophen 325 Mg Tablet) 650 mg PO Q6H PRN PRN PRN Reason: Pain Score 1-10/Temp > 100.7 F Amiodarone HCl (Amiodarone 200 Mg Tablet) 400 mg PO BID [facility] Last Admin: 09/20/20 09:01 Dose: 400 mg Documented by: Diclofenac Sodium (Diclofenac 1% Gel 100gm Tube) 1 applic TOPICAL Q6 [facility] Last Admin: 09/20/20 10:57 Dose: 1 applic Documented by: Fentanyl (Fentanyl 100 Mcg Patch) 100 mcg TD Q72H [facility] Gabapentin (Gabapentin 300 Mg Capsule) 300 mg PO Q8H [facility] Last Admin: 09/20/20 14:47 Dose: 300 mg Documented by: Hydromorphone HCl (Hydromorphone 2 Mg Tablet) 4 mg PO Q6H [facility] Last Admin: 09/20/20 11:01 Dose: 4 mg Documented by: Metoprolol Tartrate (Metoprolol Tartrate 100 Mg Tablet) 100 mg PO BID [facility] Last Admin: 09/20/20 09:04 Dose: 100 mg Documented by: Nitroglycerin (Nitroglycerin (Inpatient Use) 0.4 Mg Tab.Subl) 0.4 mg SL Q5M PRN PRN Reason: CARDIAC/CHEST PAIN Ondansetron HCl (Ondansetron 4 Mg/2 Ml Vial) 4 mg IV Q8H PRN PRN PRN Reason: NAUSEA/VOMITING Senna/Docusate Sodium (Senna/Docusate Sodium 1 Tablet) 1 tablet PO BID [facility] Last Admin: 09/20/20 09:01 Dose: 1 tablet Documented by: Sodium Chloride (0.9% Saline Lock 10 Ml Syringe) 10 - 40 ml IV UD PRN PRN Reason: SALINE FLUSH Last Admin: 09/18/20 17:20 Dose: 10 ml Documented by: Medical Necessity - Tobacco Use Smoking Status: Never smoker Assessment/Plan All Active Problems (Last Reviewed 09/11/20 @ 13:06 by Kim Bowling) Swelling of right lower extremity (Acute) #1 atrial fibrillation with rapid ventricular response-patient will remain on Lopressor, patient is now on amiodarone #2 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 OBSV E&M: [id number] Subsequent observation care L3
[2020-09-20] MEDS: 0.9% Saline Lock 10 ML Syringe IV (16:40)
[2020-09-20] MEDS: Digoxin 250 MCG/ML Ampul 500 MCG IV (16:40)
[2020-09-21 02:59] VITALS: PULSE 70
[2020-09-21 03:20] VITALS: BP 101/60; PULSE 85; RESP 14; TEMP 36.9; O2SAT 96
[2020-09-21] MEDS: HYDROmorphone 2 MG TABLET 4 MG PO ×2 (05:20→10:06)
[2020-09-21] MEDS: Gabapentin 300 MG Capsule PO (06:43)
[2020-09-21 07:35] VITALS: PULSE 75
--- NOTE | 2020-09-21 09:41 | DCINST_ITS ---
You will use the following diet at home:: No restrictions Your food should be the consistency of: Regular Your liquids should be the consistency of: Regular/Thin Discharge Activity: Return to Normal Activity Weight Bearing Status: Full weight bearing Allergies/Adverse Reactions: Allergies ibuprofen Adverse Reaction (Intermediate, Verified 09/18/20 11:04) Abd cramps/diarrhea codeine Adverse Reaction (Verified 09/18/20 11:04) Rash Medications to take at Discharge fentaNYL patch [Duragesic patch] 100 mcg TRANSDERM. Q72H 08/21/20 Gabapentin [Neurontin] 300 mg PO Q8H #90 capsule 08/30/20 Apixaban [Eliquis] 5 mg PO BID 30 Days #88 tablet 09/11/20 Diclofenac Sodium [Voltaren] 1 inch TOPICAL Q6H 09/18/20 Hydromorphone HCl [Dilaudid] 4 mg PO Q6H 09/18/20 Sennosides/Docusate Sodium [Senokot-S Tablet] 1 tablet PO BID 09/18/20 Amiodarone HCl [Cordarone] 400 mg PO BID #60 tablet 09/21/20 Metoprolol Tartrate [Lopressor (beta karlie)] 100 mg PO BID #60 tablet 09/21/20 The following prescriptions were given: Amiodarone HCl [Cordarone] 400 mg PO BID #60 tablet Transmission Status: Received by [facility] Metoprolol Tartrate [Lopressor (beta karlie)] 100 mg PO BID #60 tablet Transmission Status: Received by [facility] Primary Care Physician: Hector Hess MD [Primary Care Provider] - Test Results: Test results from this visit will be discussed in further detail at your follow- up appointment, if applicable. Please Follow Up With: Prashant Hernandez MD When: in the next 3 weeks
[2020-09-21] MEDS: Amiodarone 200 MG Tablet 400 MG PO (10:03)
[2020-09-21 10:04] VITALS: PULSE 75
[2020-09-21] MEDS: Metoprolol Tartrate 100 MG Tablet PO (10:04)
[2020-09-21] MEDS: Senna/Docusate Sodium 1 Tablet PO (10:04)
[2020-09-21 10:08] VITALS: BP 114/76; PULSE 92; RESP 18; TEMP 36.8; O2SAT 99
--- NOTE | 2020-09-21 18:16 | DS.PCM_ITS ---
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) #3 recent DVT in right leg present on admission - Secondary Discharge Diagnosis Chronic Problems: Chronic Problems (Last Reviewed 09/11/20 @ 13:06 by Kim Bowling) History of appendectomy (Chronic) History of tonsillectomy (Chronic) History of endometrial cancer (Chronic) Stage 111C1 Grade 3 H/O colonoscopy (Chronic) History of total abdominal hysterectomy (Chronic) History of salpingo-oophorectomy (Chronic) Bone destruction (Chronic) Pathologic fracture (Chronic) Back pain (Chronic) Lumbar radiculopathy, acute (Chronic) Lumbar radiculopathy, acute (Chronic) Degenerative lumbar spinal stenosis (Chronic) Spinal stenosis, lumbar region with neurogenic claudication (Chronic) 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 fib after a lumbar biopsy for a possible mass on her spine. Patient had a past history of atrial fibrillation before in 2019, she spontaneously converted at that time and was not treated further. Patient was placed on Eliquis recently for a DVT of her right leg. Evaluation in the emergency room included an EKG which showed the patient to be in atrial fib. Patient was placed in observation status on PCU, she had an increase in her rate of atrial fib and she was placed on rate limiting medications initially (metoprolol) but had hypotension at times. She underwent an echocardiogram which showed no abnormality. Patient was finally placed on oral amiodarone and given 1 dose of IV digoxin. Patient's rate finally came under control, blood pressure remained in the 90s and 100s systolic. On 09/21/20, patient was seen and examined: General: Alert, Oriented x3, Cooperative, No apparent distress, Well developed, Well nourished HEENT: Atraumatic, PERRLA, EOMI, Normocephalic Oral: Moist Mucosa Neck: Supple, No JVD, Negative Carotid Bruits, No Nuchal Rigidity, Trachea Midline, Thyroid Normal Size and Texture Lungs: Clear to auscultation, Normal air movement, No rhonchi, No wheeze, No rales Cardiovascular: No murmurs, PMI Normal, Irregular Rate, No rub noted Abdomen: Bowel Sounds Present, Soft, Non Tender, Non-Distended Extremities: No clubbing, No cyanosis, No edema, Capillary Refill Less than 3 Seconds Skin: No rashes, No breakdown Musculoskeletal: No Tenderness to Palpation of Joints or Extremities Neurological: Cranial nerves II-XII grossly intact, Neuro grossly intact, Sensory exam intact to light touch and pain Psych/Mental Status: Normal Affect, Appropriate, Alert and oriented to time, place, person, mood and affect Patient was discharged in stable condition on 09/21/2020. - Physical Exam Vitals/I&O's: Vital Signs Temp Pulse Resp BP Pulse Ox 98.2 F 92 18 114/76 99 09/21/20 10:08 09/21/20 10:08 09/21/20 10:08 09/21/20 10:08 09/21/20 10:08 Oxygen Delivery Method Room Air Weight: 87.2 kg Body Mass Index (BMI) 31.0 Intake and Output for Last 24 Hours 09/19/20 09/20/20 09/21/20 23:59 23:59 23:59 Intake Total 720 / 1080 1760 / 1760 500 / 500 Balance 720 / 1080 1760 / 1760 500 / 500 Discharge Activity: Return to Normal Activity Weight Bearing Status: Full weight bearing Home Medications: Medications to take at Discharge fentaNYL patch [Duragesic patch] 100 mcg TRANSDERM. Q72H 08/21/20 Gabapentin [Neurontin] 300 mg PO Q8H #90 capsule 08/30/20 Apixaban [Eliquis] 5 mg PO BID 30 Days #88 tablet 09/11/20 Diclofenac Sodium [Voltaren] 1 inch TOPICAL Q6H 09/18/20 Hydromorphone HCl [Dilaudid] 4 mg PO Q6H 09/18/20 Sennosides/Docusate Sodium [Senokot-S Tablet] 1 tablet PO BID 09/18/20 Amiodarone HCl [Cordarone] 400 mg PO BID #60 tablet 09/21/20 Metoprolol Tartrate [Lopressor (beta karlie)] 100 mg PO BID #60 tablet 09/21/20 Following Prescriptions Were Given to Patient: Amiodarone HCl [Cordarone] 400 mg PO BID #60 tablet Transmission Status: Received by [facility]30 Metoprolol Tartrate [Lopressor (beta karlie)] 100 mg PO BID #60 tablet Transmission Status: Received by [facility]30 Primary Care Physician: Hector Hess MD [Primary Care Provider] - Please Follow Up With: Prashant Hernandez MD When: in the next 3 weeks Please Follow Up With: Hector Hess MD Disposition: Home Minutes spent on discharge:: 30 Patient Condition:: Stable Medical Necessity - Tobacco Use Smoking Status: Never smoker Meaningful Use Info Meaningful Use Diagnoses (Choose all that apply): None applicable OBSV E&M: 14955 Observation care discharge
== END 2020-09-21 09:44 | disposition home or self-care (01) ==
LOC: ED 11:49 → PCU 15:24
PROVIDERS: Admitting Provider Student in an Organized Health Care Education/Training Program; Emergency Provider Emergency Medicine; PCP Internal Medicine Medical Oncology; Visit Provider Internal Medicine
DX: I48.91 Unspecified atrial fibrillation (principal); I82.401 Acute embolism and thrombosis of unspecified deep veins of right lower extremity; C54.1 Malignant neoplasm of endometrium; M48.062 Spinal stenosis, lumbar region with neurogenic claudication; I95.9 Hypotension, unspecified; G89.29 Other chronic pain; M54.16 Radiculopathy, lumbar region; Z79.01 Long term (current) use of anticoagulants; Z66 Do not resuscitate; Z79.899 Other long term (current) drug therapy; R94.31 Abnormal electrocardiogram [ECG] [EKG]
CPT/HCPCS: 36415; 71045; 80048; 83735; 84443; 84484; 85025; 85610; 85730; 93005; 93306; 96361; 96372; 96374; 96375; 97110; 97162; 97166; 97530; 99218; 99282; J7040; Q9957; A4216; C8929; G0378; J2405